=== PATIENT | female | born 1960 | race Caucasian/White ===

== ENCOUNTER 2020-09-22 15:51 | Outpatient (REF) | payer OTHER, SELFPAY ==
[2020-09-22 17:26] LABS: Thyroid Stimulating Hormone 4.76 mIU/mL (0.32-4.0)
[2020-09-22 17:56] LABS: T4 Thyroxine 5.8 ug/dL (4.5-12.0)
== END 2020-09-22 15:52 | disposition home or self-care (01) ==
LOC: HO.LAB 15:51
PROVIDERS: PCP Internal Medicine; Visit Provider Internal Medicine
DX: R94.6 Abnormal results of thyroid function studies (principal)
CPT/HCPCS: 84436; 84443

== ENCOUNTER 2021-01-04 11:02 | Outpatient (REF) | payer OTHER, SELFPAY ==
[2021-01-05 18:57] LABS: C. trachomatis RNA TMA NOT DETECTED (NOT DETECTED); N. gonorrhoeae RNA TMA NOT DETECTED (NOT DETECTED)
[2021-01-07 16:02] LABS: HPV mRNA E6/E7 rflx Not Detected (Not Detected)
== END 2021-01-04 11:03 | disposition home or self-care (01) ==
LOC: HO.LAB 11:02
PROVIDERS: PCP Internal Medicine; Visit Provider Advanced Practice Midwife
DX: Z01.419 Encounter for gynecological examination (general) (routine) without abnormal findings (principal); Z11.51 Encounter for screening for human papillomavirus (HPV); Z11.3 Encounter for screening for infections with a predominantly sexual mode of transmission; N95.2 Postmenopausal atrophic vaginitis; Z20.2 Contact with and (suspected) exposure to infections with a predominantly sexual mode of transmission; Z80.3 Family history of malignant neoplasm of breast
CPT/HCPCS: 36415; 87491; 87591; 87624; 88142

== ENCOUNTER → 2021-02-16 10:41 | Outpatient (BNVA) | payer OTHER, SELFPAY | PROVIDERS: PCP Internal Medicine; Visit Provider Advanced Practice Midwife | DX: N95.2 Postmenopausal atrophic vaginitis (principal) | CPT/HCPCS: 99212 ==

== ENCOUNTER 2021-10-11 11:10 | Outpatient (REF) | payer OTHER, SELFPAY ==
--- NOTE | ~2021-10-11 | XR_ITS ---
EXAMINATION: XR FINGER, RIGHT CLINICAL INFORMATION: Syncope and collapse COMPARISON: None TECHNIQUE: PA view of the hand and oblique and lateral views of the third digit FINDINGS: No acute fracture or dislocation. Small marginal osteophytes present throughout the interphalangeal joints, first metacarpophalangeal joint and first CMC joint. No erosive changes. Soft tissues unremarkable. XR/XR finger RT min 2V IMPRESSION: No acute findings. Mild degenerative changes as described.
--- NOTE | 2021-10-11 11:16 | ECG_ITS ---
Test Reason : syncope and collapse Blood Pressure : / mmHG Vent. Rate : 083 BPM Atrial Rate : 083 BPM P-R Int : 134 ms QRS Dur : 102 ms QT Int : 382 ms P-R-T Axes : 057 031 019 degrees QTc Int : 448 ms Normal sinus rhythm Intra-ventricular conduction delay Nonspecific ST abnormality Abnormal ECG No previous ECGs available Referred By: Maximo Oro Electronically Signed By:BELGICA MILLER MD
[2021-10-11 11:34] LABS: MANUAL DIFF FLAG NO
[2021-10-11 12:15] LABS: Basophils Absolute Auto 0.1 X10*3/uL (0.0-0.2); Basophils Percent Auto 1.1 % (0-2); Eosinophils Absolute Auto 0.1 X10*3/uL (0.0-0.4); Eosinophils Percent Auto 1.7 % (0-4); Hematocrit 35.2 % (37.0-47.0); Hemoglobin 11.1 g/dl (12.0-16.0); Imm Gran Abs Auto 0.01 X10*3/uL (0.00-0.03); Imm Gran Pct Auto 0.2 % (0.0-0.4); Lymphocytes Absolute Auto 1.8 X10*3/uL (1.2-4.9); Lymphocytes Percent Auto 33.5 % (20-40); Mean Corpuscular HGB Conc 31.5 g/dl (31.0-35.0); Mean Corpuscular Hemoglobin 26.9 pg (27.0-33.0); Mean Corpuscular Volume 85.4 fL (80.0-98.0); Monocytes Absolute Auto 0.4 X10*3/uL (0.1-1.2); Monocytes Percent Auto 7.9 % (2-11); Neutrophils Percent Auto 55.6 % (45-73); Platelet Count 260 X10*3/uL (160-400); Red Blood Count 4.12 X10*6/uL (4.20-5.50); Red Cell Distribution Width 14.6 % (11.0-16.0); White Blood Count 5.3 X10*3/uL (4.8-10.8)
[2021-10-11 12:31] LABS: Estimated Average Glucose 111 mg/dL; Hemoglobin A1c % 5.5 %
[2021-10-11 12:56] LABS: Alanine Aminotransferase 19 U/L (0-31); Albumin Level 4.2 g/dL (3.5-5.0); Alkaline Phosphatase 100 U/L (39-117); Anion Gap 14 (12-20); Aspartate Amino Transferase 22 U/L (5-31); Bilirubin Total 0.3 mg/dL (0.0-1.0); Blood Urea Nitrogen 15 mg/dL (9-16); Calcium 9.1 mg/dL (8.4-10.2); Carbon Dioxide 26 mmol/L (22-29); Chloride 104 mmol/L (96-108); Cholesterol 194 mg/dL; Estimated Glomerular Filt Rate > 60; Glucose Random 86 mg/dL (60-115); HDL Cholesterol 91 mg/dL; LDL Cholesterol Calculated 77 mg/dl; Sodium 140 mmol/L (135-145); Total Protein 6.8 g/dL (6.5-8.0); Triglycerides 130 mg/dL
[2021-10-11 13:13] LABS: Folate > 20.0 ng/mL (> or = 4.0); Vitamin B12 747 pg/mL (200-900)
[2021-10-11 13:21] LABS: Free T4 (Free Thyroxine) 0.99 ng/dL (0.71-1.85); Thyroid Stimulating Hormone 3.12 uIU/mL (0.32-4.0); Vitamin D 25-OH Total 52.9 ng/mL (>30)
[2021-10-11 14:24] LABS: Insulin 13 uU/mL (2-29)
[2021-10-13 20:42] LABS: C Peptide 3.11 ng/mL (0.80-3.85)
[2021-10-14 20:56] LABS: Beta-Hydroxybutyrate 0.07 mmol/L
[2021-10-20 05:00] LABS: Proinsulin 9.5 pmol/L (< OR = 18.8)
[2021-10-20 15:41] LABS: Chlorpropamide None Detected; Glimepiride None Detected; Glipizide None Detected; Glyburide None Detected; Nateglinide None Detected; Pioglitazone None Detected; Repaglinide None Detected; Rosiglitazone None Detected; Tolazamide None Detected; Tolbutamide None Detected
== END 2021-10-11 11:11 | disposition home or self-care (01) ==
LOC: HO.XRAY 11:10
PROVIDERS: PCP Internal Medicine; Visit Provider Internal Medicine
DX: R55 Syncope and collapse (principal); E78.1 Pure hyperglyceridemia; E78.00 Pure hypercholesterolemia, unspecified; R73.02 Impaired glucose tolerance (oral)
CPT/HCPCS: 36415; 73140; 80053; 80061; 80337; 82010; 82306; 82607; 82746; 83036; 83525; 84206; 84439; 84443; 84681; 85025; 93005

== ENCOUNTER 2021-11-01 06:42 | Outpatient (REF) | payer OTHER, SELFPAY ==
--- NOTE | 2021-11-01 06:47 | EEG_ITS ---
This is a 16-channel EEG with an EKG lead. The patient is reported awake and drowsy during the tracing. Background EEG rhythm is 12 to 14 hertz, 5 to 30 microvolt posteriorly, lower amplitude fast anteriorly. The patient transitioned in and out of drowsiness. Photic stimulation does not produce any significant abnormality. Hyperventilation is not performed. No sharp wave spikes or paroxysmal tendency or asymmetry noted. Cardiac lead does not reveal any significant abnormality. IMPRESSION: Unremarkable EEG. MD DEANDRA Colin/LASHAWN / [id number]
== END 2021-11-01 06:43 | disposition home or self-care (01) ==
LOC: HO.NEURO 06:42
PROVIDERS: Visit Provider Internal Medicine
DX: R55 Syncope and collapse (principal)
CPT/HCPCS: 95816

== ENCOUNTER 2021-11-09 11:20 | Outpatient (REF) | payer OTHER, SELFPAY ==
--- NOTE | ~2021-11-09 | US_ITS ---
EXAMINATION: US EXTRACRANIAL CAROTID DUPLEX, BILATERAL CLINICAL INFORMATION: Syncope and collapse COMPARISON: None TECHNIQUE: Real-time ultrasound and Doppler techniques (integrating B-mode 2-D vascular images, Doppler spectral analysis and color-flow Doppler imaging) were utilized to interrogate the extracranial carotid arteries, the vertebral arteries and proximal subclavian arteries bilaterally. The degree of stenosis is determined by criteria similar to NASCET. FINDINGS: Right Side: 1. There is no significant atherosclerotic plaque seen in the bifurcation/proximal ICA region. 2. The common carotid artery PSV proximally is 90 cm/s and distally 70 cm/s. 3. The proximal internal carotid artery velocities are 62 cm/s systolic and 21 cm/s diastolic. 4. The proximal external carotid artery PSV is 91 cm/s. 5. The vertebral artery shows antegrade flow. 6. The subclavian artery waveforms are normal. Left Side: 1. There is no significant atherosclerotic plaque seen in the bifurcation/proximal ICA region. 2. The common carotid artery PSV proximally is 92 cm/s and distally 98 cm/s. 3. The proximal internal carotid artery velocities are 83 cm/s systolic and 26 cm/s diastolic. 4. The proximal external carotid artery PSV is 94 cm/s. 5. The vertebral artery shows antegrade flow. 6. The subclavian artery waveforms are normal. US/US carotid duplex BI IMPRESSION: 1. RIGHT: Normal right internal carotid artery without atherosclerotic plaque or hemodynamically significant stenosis. 2. LEFT: Normal left internal carotid artery without atherosclerotic plaque or hemodynamically significant stenosis.
== END 2021-11-09 11:21 | disposition home or self-care (01) ==
LOC: HO.US 11:20
PROVIDERS: Visit Provider Internal Medicine
DX: R55 Syncope and collapse (principal)
CPT/HCPCS: 93880

== ENCOUNTER 2021-12-13 11:34 | Outpatient (REF) | payer OTHER, SELFPAY ==
[2021-12-13 11:49] LABS: MANUAL DIFF FLAG NO
[2021-12-13 11:58] LABS: Basophils Percent Auto 0.8 % (0-2); Eosinophils Absolute Auto 0.1 X10*3/uL (0.0-0.4); Eosinophils Percent Auto 1.8 % (0-4); Hematocrit 34.8 % (37.0-47.0); Hemoglobin 10.9 g/dl (12.0-16.0); Immature Retic Fraction 12.9 % (3.0-15.9); Lymphocytes Absolute Auto 1.9 X10*3/uL (1.2-4.9); Lymphocytes Percent Auto 37.6 % (20-40); Mean Corpuscular HGB Conc 31.3 g/dl (31.0-35.0); Mean Corpuscular Hemoglobin 26.4 pg (27.0-33.0); Mean Corpuscular Volume 84.3 fL (80.0-98.0); Mean Platelet Volume 9.8 fL (9.4-12.3); Monocytes Absolute Auto 0.4 X10*3/uL (0.1-1.2); Monocytes Percent Auto 7.1 % (2-11); Neutrophils Absolute Auto 2.6 x10*3/uL (2.0-8.3); Neutrophils Percent Auto 52.7 % (45-73); Platelet Count 245 X10*3/uL (160-400); Red Blood Count 4.13 X10*6/uL (4.20-5.50); Red Cell Distribution Width 14.1 % (11.0-16.0); Retic HGB Equivalent 29.2 pg (30.0-35.0); Reticulocyte Percent 0.8 % (0.5-1.8); Reticulocytes Absolute 0.032 X10*6/uL (0.026-0.095)
[2021-12-13 12:21] LABS: Iron 38 mcg/dL (30-160); Percent Iron Saturation 8 % (15-50); Total Iron Binding Capacity 457 mcg/dL (228-428); Unsaturated Iron Binding 419 ug/dL
[2021-12-13 12:42] LABS: Ferritin 3 ng/mL (10-250)
== END 2021-12-13 11:35 | disposition home or self-care (01) ==
LOC: HO.LAB 11:34
PROVIDERS: PCP Internal Medicine; Visit Provider Internal Medicine
DX: D64.9 Anemia, unspecified (principal)
CPT/HCPCS: 36415; 82728; 83540; 85025; 85045

== ENCOUNTER → 2022-01-07 10:16 | Outpatient (BNVA) | payer OTHER, SELFPAY | PROVIDERS: PCP Internal Medicine; Visit Provider Advanced Practice Midwife ==

== ENCOUNTER 2022-02-07 14:34 | Outpatient (REF) | payer OTHER, SELFPAY | END 2022-02-07 14:35 | disposition home or self-care (01) | LOC: HO.MAMMO 14:34 | PROVIDERS: Visit Provider Advanced Practice Midwife | DX: Z13.89 Encounter for screening for other disorder (principal) ==

== ENCOUNTER 2022-06-13 08:19 | Outpatient (REF) | payer OTHER, SELFPAY ==
--- NOTE | ~2022-06-13 | XR_ITS ---
EXAMINATION: XR SHOULDER, RIGHT CLINICAL INFORMATION: Shoulder pain. COMPARISON: 04/21/2015. TECHNIQUE: 3 views of the right shoulder. FINDINGS: There is no evidence of acute fracture or dislocation of the right shoulder. There is minimal spurring at the inferior aspect of the glenohumeral joint. There is calcific tendinitis present. Mild narrowing of the acromioclavicular joint is seen. No widening of the coracoclavicular space. XR/XR shoulder RT min 2V IMPRESSION: Calcific tendinitis.
== END 2022-06-13 08:20 | disposition home or self-care (01) ==
LOC: HO.HOSX 08:19
PROVIDERS: Visit Provider Physician Assistant
DX: M75.111 Incomplete rotator cuff tear or rupture of right shoulder, not specified as traumatic (principal)
CPT/HCPCS: 20610; 73030; 99202; J1040

== ENCOUNTER 2022-07-04 10:07 | Outpatient (REF) | payer OTHER, SELFPAY ==
--- NOTE | ~2022-07-04 | MM_ITS ---
EXAMINATION: MM SCREENING DIGITAL BREAST TOMOSYNTHESIS, BILATERAL CLINICAL INFORMATION: Screening. Asymptomatic. The lifetime risk of breast cancer based on the Tyrer-Cuzick Model is 17%. COMPARISON: Mammography: 03/03/2014, 02/20/2013 TECHNIQUE: Digital breast tomosynthesis is performed in both the craniocaudal and mediolateral oblique views along with computer-aided detection (CAD). Synthesized 2D images are generated from the tomosynthesis. FINDINGS: There are scattered areas of fibroglandular density (ACR BI-RADS breast composition Category b). There are no significant masses, abnormal calcifications, or other abnormalities. Parenchymal pattern is similar to prior studies. The axilla and skin contours are unremarkable. MM/MM tomosynthesis screening BI IMPRESSION: No mammographic evidence of malignancy. ASSESSMENT: BI-RADS 1: Negative RECOMMENDATION: Routine annual mammography screening. This patient's information was entered into a reminder system with a target due date for their next mammogram.
== END 2022-07-04 10:08 | disposition home or self-care (01) ==
LOC: HO.MAMMO 10:07
PROVIDERS: PCP Internal Medicine; Visit Provider Internal Medicine
DX: Z12.31 Encounter for screening mammogram for malignant neoplasm of breast (principal)
CPT/HCPCS: 77063; 77067

== ENCOUNTER 2023-05-24 10:54 | Outpatient (REF) | payer OTHER, SELFPAY ==
[2023-05-24 11:10] LABS: MANUAL DIFF FLAG NO
[2023-05-24 11:44] LABS: Basophils Absolute Auto 0.1 X10*3/uL (0.0-0.2); Basophils Percent Auto 1.9 % (0-2); Eosinophils Absolute Auto 0.1 X10*3/uL (0.0-0.4); Eosinophils Percent Auto 1.7 % (0-4); Hematocrit 40.2 % (37.0-47.0); Hemoglobin 13.4 g/dl (12.0-16.0); Imm Gran Abs Auto 0.02 X10*3/uL (0.00-0.03); Imm Gran Pct Auto 0.4 % (0.0-0.4); Immature Retic Fraction 6.5 % (3.0-15.9); Lymphocytes Absolute Auto 1.6 X10*3/uL (1.2-4.9); Lymphocytes Percent Auto 34.3 % (20-40); Mean Corpuscular HGB Conc 33.3 g/dl (31.0-35.0); Mean Corpuscular Hemoglobin 31.2 pg (27.0-33.0); Mean Corpuscular Volume 93.7 fL (80.0-98.0); Mean Platelet Volume 10.2 fL (9.4-12.3); Monocytes Absolute Auto 0.3 X10*3/uL (0.1-1.2); Monocytes Percent Auto 5.9 % (2-11); Neutrophils Absolute Auto 2.7 x10*3/uL (2.0-8.3); Neutrophils Percent Auto 55.8 % (45-73); Platelet Count 217 X10*3/uL (160-400); Red Blood Count 4.29 X10*6/uL (4.20-5.50); Red Cell Distribution Width 12.7 % (11.0-16.0); Retic HGB Equivalent 35.5 pg (30.0-35.0); Reticulocytes Absolute 0.045 X10*6/uL (0.026-0.095); White Blood Count 4.8 X10*3/uL (4.8-10.8)
[2023-05-24 11:58] LABS: Estimated Average Glucose 100 mg/dL; Hemoglobin A1c % 5.1 %
[2023-05-24 12:24] LABS: Alanine Aminotransferase 28 U/L (0-31); Alkaline Phosphatase 76 U/L (39-117); Anion Gap 7 (12-20); Aspartate Amino Transferase 23 U/L (5-31); Bilirubin Total 0.4 mg/dL (0.0-1.0); Blood Urea Nitrogen 10 mg/dL (9-16); Calcium 9.3 mg/dL (8.4-10.2); Carbon Dioxide 31 mmol/L (22-29); Chloride 102 mmol/L (96-108); Cholesterol 189 mg/dL; Estimated Glomerular Filt Rate > 60; Glucose Random 99 mg/dL (60-115); HDL Cholesterol 76 mg/dL; Iron 76 mcg/dL (30-160); LDL Cholesterol Calculated 92 mg/dl; Percent Iron Saturation 29 % (15-50); Potassium 3.8 mmol/L (3.3-5.1); Sodium 136 mmol/L (135-145); Total Iron Binding Capacity 265 mcg/dL (228-428); Total Protein 6.4 g/dL (6.5-8.0); Triglycerides 106 mg/dL; Unsaturated Iron Binding 189 ug/dL
[2023-05-24 12:33] LABS: Ferritin 63 ng/mL (10-250); Free T4 (Free Thyroxine) 0.92 ng/dL (0.71-1.85); Thyroid Stimulating Hormone 3.09 uIU/mL (0.32-4.0); Vitamin D 25-OH Total 64.3 ng/mL (>30)
[2023-05-24 15:51] LABS: Folate > 20.0 ng/mL (> or = 4.0); Vitamin B12 934 pg/mL (200-900)
== END 2023-05-24 10:55 | disposition home or self-care (01) ==
LOC: HO.LAB 10:54
PROVIDERS: PCP Internal Medicine; Visit Provider Internal Medicine
DX: D64.9 Anemia, unspecified (principal); R73.02 Impaired glucose tolerance (oral); E78.00 Pure hypercholesterolemia, unspecified; E78.1 Pure hyperglyceridemia; K21.9 Gastro-esophageal reflux disease without esophagitis
CPT/HCPCS: 36415; 80053; 80061; 82306; 82607; 82728; 82746; 83036; 83540; 84439; 84443; 85025; 85045

== ENCOUNTER 2023-09-19 15:59 | Outpatient (AMB) | payer MEDICARE, SELFPAY ==
--- NOTE | 2023-09-19 16:00 | A.OFFVIS_ITS ---
Intake Vital Signs 09/19/23 16:01 Height 5 ft 8 in Blood Pressure Location Lt brachial Position Sitting Pulse Source Pulse Oximeter Oxygen Delivery Method Room Air Intake Visit Reasons: Hypertension Allergies No Known Allergies Allergy (Verified 06/01/23 14:32) PFSH Medical History Degenerative disc disease, lumbar GERD (gastroesophageal reflux disease) History of gastrectomy Hypertension Hypertriglyceridemia Knee osteoarthritis Restless leg syndrome Surgical History H/O LEEP History of section History of lipoma History of removal of cyst Hx of laparoscopic gastric banding Status post panniculectomy Vaginal hernia Family History Father Heart disease Lung cancer CVD (cardiovascular disease) Mother Hypertension Stroke Sister Breast cancer, Onset Age: 53 Maternal Grandmother Breast cancer Social History Housing: Apartment Alcohol intake: current Alcohol intake frequency: holidays/special occasions on ly Patient Tobacco Use Status: Former Tobacco user Tobacco use type: Cigarette e-Cigarette/Vaping Use: Never Used Second Hand Smoke Exposure: No Current occupational status: unemployed Cognitive needs: No Hearing needs: No Vision needs: Yes Female Reproductive History Menstrual Age of Menarche: 11 Coding
[2023-09-19 16:01] VITALS: BP 136/80; PULSE 91; O2SAT 100; BMI 25.1
--- NOTE | 2023-09-19 16:04 | A.OFFPC_ITS ---
Vital Signs 09/19/23 16:01 Height 5 ft 8 in Weight 165 lb 0.8 oz BMI 25.1 BP 136/80 Blood Pressure Location Lt brachial Position Sitting Pulse 91 Pulse Source Pulse Oximeter Pulse Oximetry (%) 100 Oxygen Delivery Method Room Air Intake Visit Reasons: Hypertension Allergies No Known Allergies Allergy (Verified 09/19/23 16:03) Tobacco use date assessed: 06/01/23 Fall risk assessment: No Falls in past year Last assessed Fall Risk: 09/19/23 Dental Screening Dental Screen Date: 09/19/23 Did you have a dental visit in the last 12 months?: Yes Did you have a dental problem in the last 6 months where you did not have access to dental care?: No Was dental information given to patient?: Patient has dentist HPI Hypertension HPI Details 63-year-old female with hypertension, hy percholesterolemia GERD degenerative lumbar disc disease impaired glucose tolerance Yasmeen anxiety disorder last seen in May 2023. [facility] Medical History Degenerative disc disease, lumbar GERD (gastroesophageal reflux disease) History of gastrectomy Hypertension Hypertriglyceridemia Knee osteoarthritis Restless leg syndrome Surgical History H/O LEEP History of section History of lipoma History of removal of cyst Hx of laparoscopic gastric banding Status post panniculectomy Vaginal hernia Family History Father Heart disease Lung cancer CVD (cardiovascular disease) Mother Hypertension Stroke Sister Breast cancer, Onset Age: 53 Maternal Grandmother Breast cancer Social History Housing: Apartment Alcohol intake: current Alcohol intake frequency: holidays/special occasions only Patient Tobacco Use Status: Former Tobacco user Tobacco use type: Cigarette e-Cigarette/Vaping Use: Never Used Second Hand Smoke Exposure: No Current occupational status: unemployed Cognitive needs: No Hearing needs: No Vision needs: Yes Female Reproductive History Menstrual Age of Menarche: 11 Questionnaire Thrive Questionnaire Date Thrive assessed: 06/01/23 AUDIT C Alcohol Use Questionnaire (AUDIT-C) 1. How often do you have a drink containing alcohol?: Monthly or less 2. How many drinks containing alcohol do you have on a typical day when you are drinking?: 1 or 2 3. How often do you have six or more drinks on one occasion?: Never Total Score: 1 ASHLEY-7 AMB Questionnaire ASHLEY-7 Date ASHLEY - 7 assessed: 06/01/23 Source: Developed by Drs. Twin Sierra, Sandra العراقي, John Najera and colleagues, with an educational elana from [employer]. Physical exam (Primary Care) Vital Signs: Last Vital Signs Pulse 91 09/19/23 16:01 BP 136/80 09/19/23 16:01 Pulse Ox 100 09/19/23 16:01 Oxygen Delivery Method Room Air 09/19/23 16:01 BMI result Body Mass Index 25.1 Tobacco/Smoking Status: Tobacco use Status Tobacco use date assessed 06/01/23 09/19/23 16:05 Patient Tobacco Use Status Former Tobacco user 09/19/23 16:05 Tobacco use type Cigarette 09/19/23 16:05 e-Cigarette/Vaping Use Never Used 09/19/23 16:05 Thrive Assessment: Date of Thrive Assessment Date Thrive assessed 06/01/23 09/19/23 16:05 Const General: alert; No acute distress Eyes Conjunctivae: conjunctivae normal Resp Auscultation: clear to auscultation bilaterally Cardio Rate: regular rate Rhythm: regular rhythm GI Inspection: Yes normal to inspection Extrem General: Yes normal to inspection and No edema Office Procedures Flu Questionnaire Does the patient have a severe egg allergy?: No Does the patient have severe life threatening allergies?: No Does the patient have a fever or illness today?: No Has the patient ever had Guillain-Bellwood Syndrome?: No Has the patient ever had any past reaction to a flu shot?: No Immunizations flu vacc [id number] 6mos up(PF) 60 mcg(15 mcgx4)/0.5 mL IM syringe Performing Provider: Maximo Oro MD [facility] [place] [facility] Administered by: JOSEFINA Warner on 09/19/23 16:10 Dose Route Admin Location Dispensed Lot Number Expiration Date NDC [employer] Work[employer] 0.5 mL IM Left Deltoid 0.5 mL [id number] 05/26/24 18455-214-81 [employer] VIS Given Date VIS Provided VIS Publication Date 09/19/23 Single Vaccine 21 Eligibility Eligibility Date Funding Source Not VFC Eligible 09/19/23 Private pneumoc 20-nona conj-dip cr(PF) 0.5 mL IM syringe Performing Provider: Maximo Oro MD Performing [facility] [place] [facility] Administered by: JOSEFINA Warner on 09/19/23 16:49 Dose Route Admin Location Dispensed Lot Number Expiration Date NDC [employer] Worker 0.5 mL IM Left Deltoid 0.5 mL [id number] 05/27/24 [id number] VIS Given Date VIS Provided VIS Publication Date 09/19/23 Single Vaccine 21 Eligibility Eligibility Date Funding Source Not VFC Eligible 09/19/23 Private Assessment and Plan Assessment & Plan (1) Degenerative disc disease, lumbar: Code(s): M51.36 - Other intervertebral disc degeneration, lumbar region Plan: Narcotic pain meds: Is being prescribed with the understanding that these medications are potentially addictive and should be used only when absolutely necessary and must always be secured. Any remaining pills should be safely disposed off appropriately. Patient is advised that narcotics can impaired judgment and one should not drive or operate heavy machinery while taking these medications. Never share these medications with anybody and do not leave them unattended. They will not be replaced under any circumstances. (2) GERD (gastroesophageal reflux disease): Code(s): K21.9 - Gastro-esophageal reflux disease without esophagitis Qualifiers: Esophagitis presence: without esophagitis Qualified Code(s): K21.9 - Gastro-esophageal reflux disease without esophagitis Plan: Avoid the foods that causes that usually spicy foods, tomato products, juices, coffee, soda and foods that your sensitive to. After eating do not lie down, allow 3-4 hours before in lie down. And keep the head of bed above 30 degrees to avoid the acid from going up. (3) Hypertension: Code(s): I10 - Essential (primary) hypertension Qualifiers: Hypertension type: essential hypertension Qualified Code(s): I10 - Essential (primary) hypertension Plan: Continue with blood pressure medication. Decrease salt intake and exercise patient on lisinopril 5 mg once a day (4) Impaired glucose tolerance: Code(s): R73.02 - Impaired glucose tolerance (oral) Plan: Decrease the amount of carbohydrate intake, pasta, bread, rice and potatoes are all sugar and that is aside from all the sweet stuff, remember that fruits are good but they are Sweet also. (5) Breast cancer screening by mammogram: Code(s): Z12.31 - Encounter for screening mammogram for malignant neoplasm of breast Orders: Orders Influenza [id number] Immunization Today Z23 - Encounter for immunization MM tomosynthesis screening BI Today Z12.31 - Encounter for screening mammogram for malignant neoplasm of breast Pneumococcal 20 Immunization Today Z23 - Encounter for immunization Medications: Refilled oxycodone-acetaminophen 5-325 mg 1 tab PO DAILY PRN 30 tabs 0RF pain R73.02 - Impaired glucose tolerance (oral) Coding Level of Care Code Est Pt Level 4 (23690) Diagnoses Degenerative disc disease, lumbar M51.36 Gastroesophageal reflux disease without esophagitis K21.9 Esophagitis presence: without esophagitis Essential hypertension I10 Hypertension type: essential hypertension Impaired glucose tolerance R73.02 Breast cancer screening by mammogram Z11.26
== END 2023-09-19 16:55 | disposition home or self-care (01) ==
PROVIDERS: PCP Internal Medicine; Visit Provider Internal Medicine
DX: M51.36 Other intervertebral disc degeneration, lumbar region (principal); K21.9 Gastro-esophageal reflux disease without esophagitis; I10 Essential (primary) hypertension; R73.02 Impaired glucose tolerance (oral); Z12.31 Encounter for screening mammogram for malignant neoplasm of breast; Z23 Encounter for immunization
CPT/HCPCS: 90471; 90677; 90686; 99214

== ENCOUNTER 2023-10-07 08:51 | Outpatient (REF) | payer MEDICARE, SELFPAY ==
--- NOTE | ~2023-10-07 | MM_ITS ---
EXAMINATION: MM SCREENING DIGITAL BREAST TOMOSYNTHESIS, BILATERAL CLINICAL INFORMATION: Screening. Asymptomatic. COMPARISON: Mammography: This study is compared with prior exams dating back to 2012. TECHNIQUE: Digital breast tomosynthesis is performed in both the craniocaudal and mediolateral oblique views along with computer-aided detection (CAD). Synthesized 2D images are generated from the tomosynthesis. FINDINGS: There are scattered areas of fibroglandular density (ACR BI-RADS breast composition Category b). There are no significant masses, abnormal calcifications, or other abnormalities. MM/MM tomosynthesis screening BI IMPRESSION: No mammographic evidence of malignancy. ASSESSMENT: BI-RADS BI-RADS 1 - Negative RECOMMENDATION: Routine annual mammography screening. 1 year F/U This examination should not preclude the clinical evaluation of a suspicious palpable abnormality. This patient's information was entered into a reminder system with a target due date for their next mammogram.
== END 2023-10-07 08:52 | disposition home or self-care (01) ==
LOC: HO.MAMMO 08:51
PROVIDERS: PCP Internal Medicine; Visit Provider Internal Medicine
DX: Z12.31 Encounter for screening mammogram for malignant neoplasm of breast (principal)
CPT/HCPCS: 77063; 77067

== ENCOUNTER → 2023-10-07 09:00 | Outpatient (BNV) | payer MEDICARE, MEDICAID, SELFPAY | PROVIDERS: PCP Internal Medicine; Visit Provider Radiology Diagnostic Radiology | DX: Z12.31 Encounter for screening mammogram for malignant neoplasm of breast (principal) | CPT/HCPCS: 77063; 77067 ==

== ENCOUNTER 2024-01-05 12:45 | Outpatient (AMB) | payer MEDICARE, MEDICAID, SELFPAY ==
[2024-01-05 12:51] VITALS: BP 160/108; PULSE 80; TEMP 15.5; O2SAT 99; BMI 24.4
--- NOTE | 2024-01-05 12:51 | MHC.PC.OV ---
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 Accompanied by: Self / Same As Patient Allergies No Known Allergies Allergy (Verified 01/05/24 12:53) Tobacco use date assessed: 01/05/24 Fall risk assessment: No Falls in past year Last assessed Fall Risk: 01/05/24 Dental Screening Dental Screen Date: 01/05/24 Did you have a dental visit in the last 12 months?: Yes Did you have a dental problem in the last 6 months where you did not have access to dental care?: No Was dental information given to patient?: Patient has dentist HPI Lump on right side of neck HPI Details 63-year-old female with a history of lumbar degenerative disc disease GERD hypertension impaired glucose tolerance coming in for an acute problem. Last seen in August 2023. Up-to-date with mammogram up-to-date with Cologuard test. Received COVID-19 vaccine October. 1 week noted R side neck mass.- , no fevers, mild sore throat, , had a cough , no sob, PFSH Medical History Degenerative disc disease, lumbar GERD (gastroesophageal reflux disease) History of gastrectomy Hypertension Hypertriglyceridemia Knee osteoarthritis Restless leg syndrome Surgical History Vaginal hernia Status post panniculectomy Hx of laparoscopic gastric banding H/O LEEP History of lipoma History of removal of cyst History of section Family History Father Heart disease Lung cancer CVD (cardiovascular disease) Mother Hypertension Stroke Sister Breast cancer, Onset Age: 53 Maternal Grandmother Breast cancer Social History Housing: Apartment Alcohol intake: current Alcohol intake frequency: holidays/special occasions only Patient Tobacco Use Status: Former Tobacco user Tobacco use type: Cigarette e-Cigarette/Vaping Use: Never Used Second Hand Smoke Exposure: No Current occupational status: unemployed Cognitive needs: No Hearing needs: No Vision needs: Yes Female Reproductive History Menstrual Age of Menarche: 11 Questionnaire PHQ-9 Over the last 2 weeks, how often have you been bothered by any of the following problems? 1. Little interest or pleasure in doing things: more than half the days 2. Feeling down, depressed, or hopeless: more than half the days 3. Trouble falling or staying asleep, or sleeping too much: not at all 4. Feeling tired or having little energy: more than half the days 5. Poor appetite or overeating: more than half the days 6. Feeling bad about yourself - or that you are a failure or have let yourself or your family down: more than half the days 7. Trouble concentrating on things, such as reading the newspaper or watching television: nearly every day 8. Moving or speaking so slowly that other people could have noticed. Or the opposite - being so fidgety or restless that you have been moving around a lot more than usual: several days 9. Thoughts that you would be better off or of hurting yourself in some way: not at all Total score: 14 25332 - PHQ-9 Billing: Yes Source: Developed by Drs. Twin Sierra, Sandra العراقي, John Najera and colleagues, with an educational elana from [employer] Thrive Questionnaire Date Thrive assessed: 01/05/24 I am a: Patient What is your living situation today?: I have a steady place to live Within the past 12 months, did the food you bought not last and you didn't have the money to get more?: Never true Within the past 12 months, did you worry whether your food would run out before you got money to buy more?: Never true Do you have trouble paying for medicines?: No Do you have trouble getting transportation to medical appointments?: No Do you have trouble paying your heating and electricity bill?: No Do you have trouble taking care of your child, family member or friend?: No Do you have trouble with day-to-day activities such as bathing, preparing meals, shopping, managing finances, etc.?: No Are you currently unemployed and looking for a job?: No Are you interested in more education?: No Please select the resources that you would like help with: None Currently or been in a relationship where the following occur: no concerns reported THRIVE Score: 0 AUDIT C Alcohol Use Questionnaire (AUDIT-C) 1. How often do you have a drink containing alcohol?: Monthly or less 2. How many drinks containing alcohol do you have on a typical day when you are drinking?: 1 or 2 3. How often do you have six or more drinks on one occasion?: Never Total Score: 1 ASHLEY-7 AMB Questionnaire ASHLEY-7 Date ASHLEY - 7 assessed: 01/05/24 Feeling nervous, anxious, or on edge: 2 = More than half the days Not being able to stop or control worryin = More than half the days Worrying too much about different things: 2 = More than half the days Trouble relaxin = Not at all Being so restless that it is hard to sit still: 2 = More than half the days Becoming easily annoyed or irritable: 3 = Nearly every day Feeling afraid as if something awful might happen: 2 = More than half the days Total ASHLEY-7 score (0-4 normal; 5-9 mild; 10-14 moderate; 15-21 severe): 13 Source: Developed by Drs. Twin Sierra, Sandra العراقي, John Najera and colleagues, with an educational elana from [employer] ASHLEY-7 Assessment Billing ASHLEY-7 Assessment Tool: ASHLEY-7 Assessment 57413 Physical exam (Primary Care) Vital Signs: Last Vital Signs Temp 60 F L 01/05/24 12:51 Pulse 80 01/05/24 12:51 BP 160/96 H 01/05/24 13:05 Pulse Ox 99 01/05/24 12:51 Oxygen Delivery Method Room Air 01/05/24 12:51 BMI result Body Mass Index 24.4 Tobacco/Smoking Status: Tobacco use Status Tobacco use date assessed 01/05/24 01/05/24 12:54 Patient Tobacco Use Status Former Tobacco user 01/05/24 12:54 Tobacco use type Cigarette 01/05/24 12:54 e-Cigarette/Vaping Use Never Used 01/05/24 12:54 PHQ-9: PHQ-9 Score PHQ-9: Total score 14 02/09/24 13:05 Thrive Assessment: Date of Thrive Assessment Date Thrive assessed 01/05/24 01/05/24 13:05 Currently or been in a relationship where the following occur: no concerns reported Const General: alert; No acute distress Eyes Conjunctivae: conjunctivae normal Neck Other: neck mass noted Neck images: 1. neck mass Right 5 by 4 cmno redness . non tender Resp Auscultation: clear to auscultation bilaterally Cardio Rate: regular rate Rhythm: regular rhythm GI Inspection: Yes normal to inspection Extrem General: Yes normal to inspection and No edema Assessment and Plan Assessment & Plan (1) Hypertension: Code(s): I10 - Essential (primary) hypertension Qualifiers: Hypertension type: essential hypertension Qualified Code(s): I10 - Essential (primary) hypertension Plan: concern about the BP as patient is being prescribed ADHD med- advised to talk to counsellor and prescriber- need to change med (2) GERD (gastroesophageal reflux disease): Code(s): K21.9 - Gastro-esophageal reflux disease without esophagitis Qualifiers: Esophagitis presence: without esophagitis Qualified Code(s): K21.9 - Gastro-esophageal reflux disease without esophagitis Plan: Avoid the foods that causes that usually spicy foods, tomato products, juices, coffee, soda and foods that your sensitive to. After eating do not lie down, allow 3-4 hours before in lie down. And keep the head of bed above 30 degrees to avoid the acid from going up. On omeprazole 40 mg once a day (3) Degenerative disc disease, lumbar: Code(s): M51.36 - Other intervertebral disc degeneration, lumbar region Plan: Continue with pain medication p.r.n./Narcotic pain meds: Is being prescribed with the understanding that these medications are potentially addictive and should be used only when absolutely necessary and must always be secured. Any remaining pills should be safely disposed off appropriately. Patient is advised that narcotics can impaired judgment and one should not drive or operate heavy machinery while taking these medications. Never share these medications with anybody and do not leave them unattended. They will not be replaced under any circumstances. (4) Generalized anxiety disorder: Comment: [facility] Counseling Code(s): F41.1 - Generalized anxiety disorder Plan: Concern about Adderall treatment (5) Mass of right side of neck: Code(s): R22.1 - Localized swelling, mass and lump, neck Plan: Right Sided neck mass 1 week duration discussed my concern about the mass and the urgency of getting this tested. Because of the length of time antibiotic is prescribed for the patient but advised to get blood work and an urgent CT scan of the neck Orders: Orders Complete Blood Count Auto Diff Today R22.1 - Localized swelling, mass and lump, neck Comprehensive Met. Panel Today R22.1 - Localized swelling, mass and lump, neck Thyroid Stimulating Hormone Today R22.1 - Localized swelling, mass and lump, neck Free T4 (Free Thyroxine) Today R22.1 - Localized swelling, mass and lump, neck CT soft tissue neck w IV con Today R22.1 - Localized swelling, mass and lump, neck Medications: New amoxicillin-pot clavulanate 875-125 mg 1 tab PO BID 14 tabs 0RF R22.1 - Localized swelling, mass and lump, neck Refilled oxycodone-acetaminophen 5-325 mg 1 tab PO DAILY PRN 30 tabs 0RF pain R73.02 - Impaired glucose tolerance (oral) Coding Level of Care Code Est Pt Level 4 (12098) Diagnoses Essential hypertension I10 Hypertension type: essential hypertension Gastroesophageal reflux disease without esophagitis K21.9 Esophagitis presence: without esophagitis Degenerative disc disease, lumbar M51.36 Generalized anxiety disorder F41.1 Mass of right side of neck R22.1 Additional Codes ASHLEY-7 Assessment Billing - ASHLEY-7 Assessment Tool: ASHLEY-7 Assessment 18652 ([id number])
[2024-01-05 13:05] VITALS: BP 160/96
== END 2024-01-05 13:35 | disposition home or self-care (01) ==
PROVIDERS: PCP Internal Medicine; Visit Provider Internal Medicine
DX: I10 Essential (primary) hypertension (principal); K21.9 Gastro-esophageal reflux disease without esophagitis; M51.36 Other intervertebral disc degeneration, lumbar region; F41.1 Generalized anxiety disorder; R22.1 Localized swelling, mass and lump, neck
CPT/HCPCS: 99214

== ENCOUNTER 2024-01-05 14:04 | Outpatient (REF) | payer MEDICARE, MEDICAID, SELFPAY ==
--- NOTE | ~2024-01-05 | CT_ITS ---
EXAMINATION: CT SOFT TISSUE NECK WITH CONTRAST CLINICAL INFORMATION: Localized swelling. Mass and lump in neck. COMPARISON: No relevant prior imaging. TECHNIQUE: Following the intravenous administration of 60 mL of Omnipaque 350 intravenous contrast, helical imaging was performed in the axial plane with generation of coronal and sagittal reformatted images. This CT examination was performed using dose optimization techniques as appropriate, variously including the following: *Automated exposure control *Adjustment of mA and/or kV according to patient size (this includes techniques or standardized protocols for targeted exams where dose is matched to indication/reason for exam; i.e. extremities or head) *Use of iterative reconstruction technique DLP: 389 mGy-cm FINDINGS: There is a linear metallic foreign body located within the right sublingual space possibly related to a dental appliance. Streak artifact related to hardware obscures the oral cavity. The diagnostic accuracy of this examination is therefore limited with regard to these findings. There is a heterogeneously enhancing centrally necrotic right level III cervical lymph node best visualized on axial image 75 of 133 series 3 measuring up to 2.6 cm in maximal transaxial dimension. Multiple additional enhancing right level II, III, and IV cervical lymph nodes are visualized within the [id number] of this examination. These findings are most consistent with metastatic disease. There is subtle asymmetric enhancement within the right tonsillar fossa. Further mucosal spaces are otherwise unremarkable. Parapharyngeal and retromaxillary fat is preserved. [employer] spaces are symmetric. The parotid and submandibular glands are normal. The tongue base and epiglottis are normal. Preepiglottic fat is preserved. Glottic and subglottic airways are widely patent. The thyroid gland is normal and the remainder of the visualized visceral soft tissues are normal. Lung apices are clear. The aortic arch apex is normal. Cervical carotid or vertebral arteries are patent. There is compression or possible invasion along the lateral margin of the right internal jugular vein best visualized on axial image 74 of 133 series 3. No identifiable tumor thrombus within the internal jugular vein. There is no acute osseous finding. Specifically no worrisome lytic or blastic osseous lesion. There is advanced multilevel degenerative spondylosis of the cervical spine with at least moderate canal stenosis at multiple levels. The skull base is grossly intact. No mastoid or middle ear effusion. No active paranasal sinus disease. Limited visualization of the intracranial anatomy reveals no abnormal finding. CT/CT soft tissue neck w IV con IMPRESSION: There is a heterogeneously enhancing centrally necrotic right level III cervical lymph node measuring up to 2.6 cm in maximal transaxial dimension. Multiple additional enhancing right level II, III, and IV cervical lymph nodes are visualized within the [id number] of this examination. These findings are most consistent with metastatic disease. There is subtle asymmetric enhancement within the right tonsillar fossa. This finding could represent the site of primary disease. Correlation with direct visualization is recommended. There is advanced multilevel degenerative spondylosis of the cervical spine with at least moderate canal stenosis at multiple levels. If there are clinical symptoms of compressive myelopathy then a dedicated cervical spine MRI can be obtained for better anatomic characterization of the cord and canal.
[2024-01-05 14:22] LABS: MANUAL DIFF FLAG NO
[2024-01-05 15:35] LABS: Basophils Absolute Auto 0.1 X10*3/uL (0.0-0.2); Basophils Percent Auto 0.8 % (0-2); Eosinophils Absolute Auto 0.1 X10*3/uL (0.0-0.4); Hematocrit 37.6 % (37.0-47.0); Hemoglobin 12.5 g/dl (12.0-16.0); Imm Gran Abs Auto 0.02 X10*3/uL (0.00-0.03); Imm Gran Pct Auto 0.3 % (0.0-0.4); Lymphocytes Absolute Auto 2.1 X10*3/uL (1.2-4.9); Lymphocytes Percent Auto 28.6 % (20-40); Mean Corpuscular HGB Conc 33.2 g/dl (31.0-35.0); Mean Corpuscular Hemoglobin 30.1 pg (27.0-33.0); Mean Corpuscular Volume 90.6 fL (80.0-98.0); Monocytes Absolute Auto 0.5 X10*3/uL (0.1-1.2); Monocytes Percent Auto 6.1 % (2-11); Neutrophils Absolute Auto 4.6 x10*3/uL (2.0-8.3); Neutrophils Percent Auto 63.2 % (45-73); Platelet Count 298 X10*3/uL (160-400); Red Blood Count 4.15 X10*6/uL (4.20-5.50); Red Cell Distribution Width 12.9 % (11.0-16.0); White Blood Count 7.3 X10*3/uL (4.8-10.8)
[2024-01-05 16:24] LABS: Alanine Aminotransferase 19 U/L (0-31); Albumin Level 3.9 g/dL (3.5-5.0); Alkaline Phosphatase 98 U/L (39-117); Anion Gap 12 (12-20); Aspartate Amino Transferase 19 U/L (5-31); Bilirubin Total 0.3 mg/dL (0.0-1.0); Blood Urea Nitrogen 8 mg/dL (9-16); Calcium 9.9 mg/dL (8.4-10.2); Carbon Dioxide 30 mmol/L (22-29); Chloride 101 mmol/L (96-108); Estimated Glomerular Filt Rate > 60; Glucose Random 86 mg/dL (60-115); Potassium 4.1 mmol/L (3.3-5.1); Sodium 139 mmol/L (135-145)
[2024-01-05 16:42] LABS: Free T4 (Free Thyroxine) 0.91 ng/dL (0.71-1.85); Thyroid Stimulating Hormone 2.81 uIU/mL (0.32-4.0)
[2024-01-05] MEDS: iohexoL 350 MG/ML 100 ML INFUS..BTL IV (17:21)
== END 2024-01-05 14:05 | disposition home or self-care (01) ==
LOC: HO.LAB 14:04
PROVIDERS: PCP Internal Medicine; Visit Provider Internal Medicine
DX: R22.1 Localized swelling, mass and lump, neck (principal)
CPT/HCPCS: 36415; 70491; 80053; 84439; 84443; 85025; Q9967

== ENCOUNTER 2024-01-19 09:51 | Outpatient (AMB) | payer MEDICARE, MEDICAID, SELFPAY ==
--- NOTE | 2024-01-19 10:01 | A.OFFVIS_ITS ---
Intake Vital Signs 01/19/24 10:05 Height 5 ft 8 in Weight 160 lb BMI 24.3 BP 158/75 H Blood Pressure Location Lt brachial Position Sitting Pulse 78 Intake Visit Reasons: Mass~ Rt neck Intake Note: Patient is seen in office for evaluation and treatment of a right neck mass Pt c/o:lump right side of the neck for aprox 2 wks, had antibiotics and lump has decrease since, denies discharge, redness, swelling, was painful when swollen [facility] Required: No Accompanied by: Self / Same As Patient Allergies No Known Allergies Allergy (Verified 01/19/24 10:02) HPI HPI Comments History of Present Illness Details Patient presents for evaluation of a right mid cervical lymph node. She was treated with antibiotics for proximally 2 weeks time by medical doctor. She was found to have a CT scan of the head neck area was demonstrated very suspicious lymphadenopathy. Patient herself denies any fever, chills, night sweats, weight loss. Energy, appetite and weight are stable. Patient does have very significant past smoking history. Chart was reviewed patient evaluate [facility] Medical History Degenerative disc disease, lumbar GERD (gastroesophageal reflux disease) History of gastrectomy Hypertension Hypertriglyceridemia Knee osteoarthritis Restless leg syndrome Surgical History Vaginal hernia Status post panniculectomy Hx of laparoscopic gastric banding H/O LEEP History of lipoma History of removal of cyst History of section Family History Father Heart disease Lung cancer CVD (cardiovascular disease) Mother Hypertension Stroke Sister Breast cancer, Onset Age: 53 Maternal Grandmother Breast cancer Social History Housing: Apartment Alcohol intake: current Alcohol intake frequency: holidays/special occasions only Patient Tobacco Use Status: Former Tobacco user Tobacco use type: Cigarette e-Cigarette/Vaping Use: Never Used Second Hand Smoke Exposure: No Current occupational status: unemployed Cognitive needs: No Hearing needs: No Vision needs: Yes Female Reproductive History Menstrual Age of Menarche: 11 Physical Exam Vital Signs: Last Vital Signs Pulse 78 01/19/24 10:05 BP 158/75 H 02/23/24 10:05 BMI result Body Mass Index 24.3 Neck Other: Deep right mid cervical lymph node along the posterior margin of the sternocleidomastoid. No other cervical periclavicular axillary or groin adenopathy appreciated. Chest Other: Chest breath sounds bilaterally, HS 1 in 2 GI Other: Abdomen soft, benign Assessment & Plan Assessment & Plan (1) Mass of right side of neck: Code(s): R22.1 - Localized swelling, mass and lump, neck Plan Based on the patient's CT scan findings, the current recommendation is for excisional biopsy of this right mid cervical suspicious lymph node. Risks, benefits, alternatives of the procedure reviewed the patient and included but not limited to bleeding, infection, recurrence, numbness, pain, scarring, nondiagnostic , and the patient wishes to proceed. All questions answered. Arrangements were made for this. Coding Level of Care Code New Pt Level 5 (57948) Diagnoses Mass of right side of neck R22.1
[2024-01-19 10:05] VITALS: BP 158/75; PULSE 78; BMI 24.3
== END 2024-01-19 10:19 | disposition home or self-care (01) ==
PROVIDERS: PCP Internal Medicine; Referring Provider Internal Medicine; Visit Provider Surgery
DX: R22.1 Localized swelling, mass and lump, neck (principal)
CPT/HCPCS: 99204

== ENCOUNTER → 2024-01-19 09:51 | Outpatient (BNVA) | payer MEDICARE, MEDICAID, SELFPAY | PROVIDERS: PCP Internal Medicine; Referring Provider Internal Medicine; Visit Provider Surgery | DX: R22.1 Localized swelling, mass and lump, neck (principal) | CPT/HCPCS: 99202 ==

== ENCOUNTER 2024-01-30 13:30 | Outpatient (AMB) | payer MEDICARE, MEDICAID, SELFPAY ==
[2024-01-30 13:31] VITALS: BP 146/98; PULSE 84; O2SAT 99; BMI 23.4
--- NOTE | 2024-01-30 13:31 | A.OFFPC_ITS ---
Vital Signs 01/30/24 13:31 Height 5 ft 8 in Weight 154 lb 0.2 oz BMI 23.4 BP 146/98 H Blood Pressure Location Lt brachial Position Sitting Pulse 84 Pulse Source Pulse Oximeter Temp Source Skin Pulse Oximetry (%) 99 Oxygen Delivery Method Room Air Intake Visit Reasons: neck surgery Intake Note: Patient is here for a Pre-op for right cervical lymph node scheduled with Dr. 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: No Allergies No Known Allergies Allergy (Verified 01/30/24 13:32) Medication List - Last Reconciled 01/30/24 by Maximo Oro MD blood sugar diagnostic (FreeStyle Lite Strips) As directed check the BS QD blood-glucose meter (FreeStyle Lite Meter kit) As directed bupropion HCl 150 mg PO QAM calcium carbonate-vitamin D3 500 mg-5 mcg (200 unit) (Calcium 500 + D) 1 tab PO DAILY cyclobenzaprine 10 mg PO TID dextroamphetamine-amphetamine 20 mg (Adderall) 20 mg PO DAILY docusate sodium 100 mg PO BID escitalopram oxalate 10 mg PO DAILY fluticasone propionate 50 mcg/actuation (Flonase Allergy Relief) 2 sprays intranasal DAILY glucosamine HCl 500 mg PO DAILY lisinopril 5 mg PO DAILY lorazepam 1 mg PO DAILY PRN multivitamin 1 tab PO DAILY naloxone 4 mg/actuation (Narcan) 4 mg intranasal Q3M PRN omeprazole 40 mg PO QAM oxycodone-acetaminophen 5-325 mg 1 tab PO DAILY PRN ropinirole 1 mg PO DAILY vit A-vit C-vit N-fdcm-lahimi 7,160-113-100 lizs-ny-sjqe tabs PO DAILY Tobacco use date assessed: 01/30/24 Fall risk assessment: No Falls in past year Last assessed Fall Risk: 01/30/24 HPI neck surgery HPI Details 63-year-old female with a history of hyp ertension GERD lumbar degenerative disc disease generalized anxiety disorder coming in for follow-up last seen in 01/05/2024 having right-sided neck mass. Patient was referred to the surgeon as well as the hematology oncology. Surgeons note appreciated has been advised to have excisional biopsy of the right mid cervical suspicious lymph node. Planned 02/02/2024. the mass has gone down dramatically but will still have the procedure . Otherwise patient is here for refill on the narcotic pain medication no other complaints of nausea vomiting fevers no coughs no colds no bowel bladder symptoms. [facility] Medical History Degenerative disc disease, lumbar GERD (gastroesophageal reflux disease) History of gastrectomy Hypertension Hypertriglyceridemia Knee osteoarthritis Restless leg syndrome Surgical History Vaginal hernia Status post panniculectomy Hx of laparoscopic gastric banding H/O LEEP History of lipoma History of removal of cyst History of section Family History Father Heart disease Lung cancer CVD (cardiovascular disease) Mother Hypertension Stroke Sister Breast cancer, Onset Age: 53 Maternal Grandmother Breast cancer Social History Housing: Apartment Alcohol intake: current Alcohol intake frequency: holidays/special occasions only Patient Tobacco Use Status: Former Tobacco user Tobacco use type: Cigarette e-Cigarette/Vaping Use: Never Used Second Hand Smoke Exposure: No Current occupational status: unemployed Cognitive needs: No Hearing needs: No Vision needs: Yes Female Reproductive History Menstrual Age of Menarche: 11 Questionnaire Thrive Questionnaire Date Thrive assessed: 01/05/24 AUDIT C Alcohol Use Questionnaire (AUDIT-C) 1. How often do you have a drink containing alcohol?: Monthly or less 2. How many drinks containing alcohol do you have on a typical day when you are drinking?: 1 or 2 3. How often do you have six or more drinks on one occasion?: Never Total Score: 1 ASHLEY-7 AMB Questionnaire ASHLEY-7 Date ASHLEY - 7 assessed: 01/05/24 Source: Developed by Drs. Twin Sierra, Sandra العراقي, John Najera and colleagues, with an educational elana from [employer]. Review of Systems Const Denies poor appetite and Denies weakness Eyes Denies no additional complaints ENT Reports Normal hearing present, Denies dizziness, Denies nasal congestion, Denies tinnitus and Denies sore throat Card Denies chest pain, Denies syncope, Denies rapid heart rate and Denies dyspnea Resp Denies cough and Denies dyspnea GI Denies change in stool character, Reports constipation, Denies diarrhea, Denies nausea and Denies vomiting Denies urinary frequency, Denies difficulty voiding and Denies dysuria Neuro Reports Normal hearing present, Denies confusion, Denies dizziness, Denies syncope and Denies weakness Psych Denies confusion Physical exam (Primary Care) Vital Signs: Last Vital Signs Pulse 84 01/30/24 13:31 BP 146/98 H 01/30/24 13:31 Pulse Ox 99 01/30/24 13:31 Oxygen Delivery Method Room Air 01/30/24 13:31 BMI result Body Mass Index 23.4 Tobacco/Smoking Status: Tobacco use Status Tobacco use date assessed 01/30/24 01/30/24 13:33 Patient Tobacco Use Status Former Tobacco user 01/30/24 13:33 Tobacco use type Cigarette 01/30/24 13:33 e-Cigarette/Vaping Use Never Used 01/30/24 13:33 Thrive Assessment: Date of Thrive Assessment Date Thrive assessed 01/05/24 01/30/24 13:33 Const General: No confusion Orientation/consciousness: No confusion Eyes Conjunctivae: conjunctivae normal Resp Auscultation: clear to auscultation bilaterally Cardio Rate: regular rate Rhythm: regular rhythm GI Inspection: Yes normal to inspection Neuro General: No confusion Cranial nerves: Yes Normal hearing present Extrem General: Yes normal to inspection and No edema Assessment and Plan Assessment & Plan (1) Hypertension: Code(s): I10 - Essential (primary) hypertension Qualifiers: Hypertension type: essential hypertension Qualified Code(s): I10 - Essential (primary) hypertension Plan: Presently on lisinopril 5 mg once a day (2) GERD (gastroesophageal reflux disease): Code(s): K21.9 - Gastro-esophageal reflux disease without esophagitis Qualifiers: Esophagitis presence: without esophagitis Qualified Code(s): K21.9 - Gastro-esophageal reflux disease without esophagitis Plan: Avoid the foods that causes that usually spicy foods, tomato products, juices, coffee, soda and foods that your sensitive to. After eating do not lie down, allow 3-4 hours before in lie down. And keep the head of bed above 30 degrees to avoid the acid from going up. (3) Degenerative disc disease, lumbar: Code(s): M51.36 - Other intervertebral disc degeneration, lumbar region Plan: Narcotic pain meds: Is being prescribed with the understanding that these medications are potentially addictive and should be used only when absolutely necessary and must always be secured. Any remaining pills should be safely disposed off appropriately. Patient is advised that narcotics can impaired judgment and one should not drive or operate heavy machinery while taking these medications. Never share these medications with anybody and do not leave them unattended. They will not be replaced under any circumstances. (4) Generalized anxiety disorder: Comment: [facility] Code(s): F41.1 - Generalized anxiety disorder Plan: Continue with counseling and therapy (5) Mass of right side of neck: Code(s): R22.1 - Localized swelling, mass and lump, neck Plan: Patient has a planned excisional biopsy 02/02/2024 the right neck mass has subsided in size. Medications: Refilled oxycodone-acetaminophen 5-325 mg 1 tab PO DAILY PRN 30 tabs 0RF pain R73.02 - Impaired glucose tolerance (oral) Coding Level of Care Code Est Pt Level 4 (88005) Diagnoses Essential hypertension I10 Hypertension type: essential hypertension Gastroesophageal reflux disease without esophagitis K21.9 Esophagitis presence: without esophagitis Degenerative disc disease, lumbar M51.36 Generalized anxiety disorder F41.1 Mass of right side of neck R22.1
== END 2024-01-30 14:14 | disposition home or self-care (01) ==
PROVIDERS: PCP Internal Medicine; Visit Provider Internal Medicine
DX: I10 Essential (primary) hypertension (principal); K21.9 Gastro-esophageal reflux disease without esophagitis; M51.36 Other intervertebral disc degeneration, lumbar region; F41.1 Generalized anxiety disorder; R22.1 Localized swelling, mass and lump, neck
CPT/HCPCS: 99214

== ENCOUNTER 2024-02-02 07:04 | Day surgery (SDC) | payer MEDICARE, MEDICAID, SELFPAY ==
[2024-01-31 10:08] VITALS: BMI 23.4
--- NOTE | 2024-02-01 16:21 | MHC.SHP ---
Pre-Procedural Eval Section A - 24 Hr Update-Section A only Date of Service: 02/01/24 The patient is an INPATIENT: No Changes since office visit: No Cold of Flu in the past 2 weeks, No New Medical Problems, No Changes in Medication and No Patient answered all questions The patient has been examined within 24 hours of the surgical procedure. The History & Physical has been completed within 30 days and I have reviewed it.: Yes Section B - Complete if H&P > 30 days Chief Complaint: Other diseases of mediastinum, not elsewhere class Allergies: Allergies Allergy/AdvReac Type Severity Reaction Status Date / Time No Known Allergies Allergy Verified 01/30/24 13:32 Plan I have reviewed the history and physical and performed a pertinent physical examination on my patient. No changes have occurred unless specified. Time Spent With Patient Time: Total time managing care of this patient today ____ minutes.
[2024-02-02 07:18] VITALS: BMI 24.3
[2024-02-02 07:33] VITALS: BP 116/72; PULSE 70; RESP 16; TEMP 37.1; O2SAT 100
[2024-02-02] MEDS: Lactated Ringers 1,000 ML 100 ML IVCONT (07:54)
[2024-02-02 07:58] LABS: Glucose, Whole Blood 103 mg/dL (60-115)
--- NOTE | 2024-02-02 08:10 | HO.ANESPROP2 ---
Documented by User: Wilma Frederick NP 01/31/24 14:28 HPI - Anesthesia Eval Consult details Narrative: 63yo F for Right Wide Local Excision Cervical Lymph Node PMFSH Active Problems Active Problems: All Active Problems (Updated 01/31/24 @ 10:07 by Jesica Solorio RN) Mass of right side of neck (Acute) Breast cancer screening by mammogram (Acute) Colon cancer screening (Acute) Rotator cuff tear (Acute) Shoulder pain, right (Acute) COVID-19 virus infection (Acute) Anemia (Acute) Generalized anxiety disorder (Acute) Finger pain, right (Acute) Syncopal episodes (Acute) Impaired glucose tolerance (Acute) Atrophic vaginitis (Acute) Family history of breast cancer (Acute) Hypertension (Acute) Hypertriglyceridemia (Acute) Knee osteoarthritis (Acute) Restless leg syndrome (Acute) GERD (gastroesophageal reflux disease) (Acute) Degenerative disc disease, lumbar (Acute) Past Medical History Medical History (Updated 01/31/24 @ 10:07 by Jesica Solorio RN) Impaired glucose tolerance History of gastrectomy Hypertension Hypertriglyceridemia Knee osteoarthritis Restless leg syndrome GERD (gastroesophageal reflux disease) Degenerative disc disease, lumbar Family History Family History Father Heart disease Lung cancer CVD (cardiovascular disease) Mother Hypertension Stroke Sister Breast cancer, Onset Age: 53 Maternal Grandmother Breast cancer Surgical History Surgical History (Updated 01/19/24 @ 10:16 by Aiden Mckeon MD) Vaginal hernia Status post panniculectomy Hx of laparoscopic gastric banding H/O LEEP History of lipoma History of removal of cyst History of section Social History Social History Housing: Apartment Alcohol intake: current Alcohol intake frequency: does not drink Patient Tobacco Use Status: Former Tobacco user Tobacco use type: Cigarette e-Cigarette/Vaping Use: Never Used Second Hand Smoke Exposure: No Use of substances other than those prescribed or required for medical reasons: Yes Substance Use Frequency: Occasionally Are you DNR?: No Advance Directives: No Advance Directives Information Provided: Yes Advance Directives on File: No Current occupational status: unemployed Cognitive needs: No Hearing needs: No Vision needs: Yes Meds Allergies Allergy/AdvReac Type Severity Reaction Status Date / Time No Known Allergies Allergy Verified 01/30/24 13:32 Home Medications Medication Instructions Recorded Confirmed Last Taken Type bupropion HCl 150 mg 24 hr tablet, 150 mg PO QAM 09/25/20 01/31/24 Unknown History extended release calcium carbonate 500 mg-vitamin 1 tab PO DAILY 09/25/20 01/31/24 Unknown History D3 5 mcg (200 unit) tablet (Calcium 500 + D) dextroamphetamine-amphetamine 20 20 mg PO DAILY 09/25/20 01/31/24 Unknown History mg tablet (Adderall) glucosamine HCl 500 mg tablet 500 mg PO DAILY 09/25/20 01/31/24 Unknown History lorazepam 1 mg tablet 1 mg PO DAILY PRN Anxiety 09/25/20 01/31/24 02/02/24 History multivitamin 1 tab PO DAILY 09/25/20 01/31/24 Unknown History vit A 7,160 unit-vit C 113 mg-vit 1 tab PO DAILY 09/25/20 01/31/24 Unknown History E 100 rvpj-owfb-[id number] tablet escitalopram oxalate 10 mg tablet 10 mg PO DAILY 04/05/21 01/31/24 Unknown History Exam Height,Weight and Vital Signs: Height 5 ft 8 in Weight 69.853 kg Pertinent Lab Results Pertinent Lab Results: Laboratory Tests 01/05/24 14:21 WBC 7.3 Hgb 12.5 Hct 37.6 Plt Count 298 D Sodium 139 Potassium 4.1 Chloride 101 Carbon Dioxide 30 H BUN 8 L Creatinine 0.70 Assessment and Plan Assessment Anesthesia Assessment: Chart Reviewed Documented by User: Yenny Mahan DO 02/02/24 08:12 [facility] Past Medical History Medical History (Updated 01/31/24 @ 10:07 by Jesiac Solorio RN) Impaired glucose tolerance History of gastrectomy Hypertension Hypertriglyceridemia Knee osteoarthritis Restless leg syndrome GERD (gastroesophageal reflux disease) Degenerative disc disease, lumbar Family History Family History Father Heart disease Lung cancer CVD (cardiovascular disease) Mother Hypertension Stroke Sister Breast cancer, Onset Age: 53 Maternal Grandmother Breast cancer Family history of problems with anesthesia: No Surgical History Surgical History (Updated 01/19/24 @ 10:16 by Aiden Mckeon MD) Vaginal hernia Status post panniculectomy Hx of laparoscopic gastric banding H/O LEEP History of lipoma History of removal of cyst History of section History of Problems with Anesthesia: No Social History Social History Housing: Apartment Alcohol intake: current Alcohol intake frequency: does not drink Patient Tobacco Use Status: Former Tobacco user Tobacco use type: Cigarette e-Cigarette/Vaping Use: Never Used Second Hand Smoke Exposure: No Use of substances other than those prescribed or required for medical reasons: Yes Substance Use Frequency: Occasionally Are you DNR?: No Advance Directives: No Advance Directives Information Provided: Yes Advance Directives on File: No Current occupational status: unemployed Cognitive needs: No Hearing needs: No Vision needs: Yes Meds Allergies Allergy/AdvReac Type Severity Reaction Status Date / Time No Known Allergies Allergy Verified 01/30/24 13:32 Home Medications Medication Instructions Recorded Confirmed Last Taken Type bupropion HCl 150 mg 24 hr tablet, 150 mg PO QAM 09/25/20 01/31/24 Unknown History extended release calcium carbonate 500 mg-vitamin 1 tab PO DAILY 09/25/20 01/31/24 Unknown History D3 5 mcg (200 unit) tablet (Calcium 500 + D) dextroamphetamine-amphetamine 20 20 mg PO DAILY 09/25/20 01/31/24 Unknown History mg tablet (Adderall) glucosamine HCl 500 mg tablet 500 mg PO DAILY 09/25/20 01/31/24 Unknown History lorazepam 1 mg tablet 1 mg PO DAILY PRN Anxiety 09/25/20 01/31/24 02/02/24 History multivitamin 1 tab PO DAILY 09/25/20 01/31/24 Unknown History vit A 7,160 unit-vit C 113 mg-vit 1 tab PO DAILY 09/25/20 01/31/24 Unknown History E 100 iawk-jjin-qxnfgh tablet escitalopram oxalate 10 mg tablet 10 mg PO DAILY 04/05/21 01/31/24 Unknown History Exam Height,Weight and Vital Signs: Height 5 ft 8 in Weight 69.853 kg Height 5 ft 8 in Weight 72.575 kg Vital Signs Temperature 98.8 F 02/02/24 07:33 Pulse Rate 70 02/02/24 07:33 Respiratory Rate 16 02/02/24 07:33 Blood Pressure 116/72 02/02/24 07:33 Pulse Oximetry 100 02/02/24 07:33 Oxygen Delivery Method Room Air 02/02/24 07:33 Temperature 98.8 F 02/02/24 07:33 Pulse Rate 70 02/02/24 07:33 Respiratory Rate 16 02/02/24 07:33 Blood Pressure 116/72 02/02/24 07:33 Pulse Oximetry 100 02/02/24 07:33 Oxygen Delivery Method Room Air 02/02/24 07:33 Airway Mallampati Class: I TM Dist: >3cm Neck ROM: Full Denture: Upper Partial: Lower Heart: S1S2 Lungs: CTAB Assessment and Plan Assessment Anesthesia Assessment: Anesthesia Plan Discussed and Chart Reviewed Final Anesthetic Review Family History of Problems with Anesthesia: No History of Problems with Anesthesia: No NPO: Yes ASA Class: II Final Preanesthetic Review: No Changes in Pt Med Stat, Meds/Allgs Chart Reviewed, Consent Obtained/Reviewed and Anes Risks/Benef Reviewed Patient Risk: Low Procedure Risk: Low Anesthetic Plan Anesthetic Plan: MAC: and Agree w/ Assess. and Plan Disposition: Standard PACU
[2024-02-02 09:00] VITALS: BP 111/61; PULSE 67; RESP 16; TEMP 36.2; O2SAT 95
[2024-02-02 09:15] VITALS: BP 131/80; PULSE 60; RESP 14; O2SAT 99
--- NOTE | 2024-02-02 09:22 | W.PM.OPN ---
Operative Note Operative Note Date of Service: 02/02/24 Narrative: Preoperative diagnosis: [] Mid right cervical mass Postop diagnosis: [] Same Procedure [] excision right cervical mass/lymph node Surgeon: [] Mike Web Production Designer: [] William Type of Anesthesia: [] MAC Indication for surgery: [] Markedly indurated retro sternocleidomastoid mass suggestive of a lymph node. Specimen sent to pathology Findings: [] Patient brought to the operating room, placed on operative table supine position, after adequate level of MAC anesthesia was induced, the right neck and chest were prepped and draped in usual sterile fashion. Using a transverse incision the the right mid neck over the mass in question, this carried down through skin, subcutaneous tissue, cervical fascia. Latissimus dorsi muscle was retracted posteriorly, and an indurated mass was circumferentially dissected out using combination of blunt and Bovie dissection from the posterior aspect of the sternocleidomastoid well away from the internal jugular vein. Specimen sent to pathology. Wound was irrigated, secured hemostasis, and closed in the following manner; cervical fascia was reapproximated using interrupted 3-0 Vicryl suture. Interrupted inverted deep dermal 3-0 Vicryl sutures followed by running subcuticular 4-0 Vicryl sutures were placed. Steri-Strips and sterile dressings were applied. Wound was infiltrated with 0.5% Marcaine/1% lidocaine at the beginning and the end of the case. Sponge, needle, and instrument counts were reported correct. Patient tolerated the procedure well and emerged from anesthesia stable condition. EBL minimal
[2024-02-02 09:30] VITALS: BP 142/81; PULSE 58; RESP 16; TEMP 36.2; O2SAT 98
== END 2024-02-02 09:55 | disposition home or self-care (01) ==
PROVIDERS: PCP Internal Medicine; Visit Provider Surgery
PROC: (CPT 38500; principal; 2024-02-02 08:40)
DX: J98.59 Other diseases of mediastinum, not elsewhere classified (principal); R22.1 Localized swelling, mass and lump, neck; I88.8 Other nonspecific lymphadenitis; I10 Essential (primary) hypertension; E78.1 Pure hyperglyceridemia; R73.02 Impaired glucose tolerance (oral); K21.9 Gastro-esophageal reflux disease without esophagitis; M51.36 Other intervertebral disc degeneration, lumbar region; Z79.899 Other long term (current) drug therapy; Z90.3 Acquired absence of stomach [part of]; Z98.84 Bariatric surgery status; Z87.891 Personal history of nicotine dependence
CPT/HCPCS: 38510; 36415; 82947; 88184; 88185; 88305; 88312; 88333; 88341; 88342; J0690; J2250; J2704; J2795; J3010

== ENCOUNTER → 2024-02-02 07:04 | Outpatient (BNV) | payer MEDICARE, MEDICAID, SELFPAY | PROVIDERS: PCP Internal Medicine; Visit Provider Surgery | DX: I88.1 Chronic lymphadenitis, except mesenteric (principal) | CPT/HCPCS: 38510 ==

== ENCOUNTER 2024-02-13 09:31 | Outpatient (AMB) | payer MEDICARE, MEDICAID, SELFPAY ==
[2024-02-13 09:40] VITALS: BP 139/67; PULSE 102
--- NOTE | 2024-02-13 09:40 | MHC.OFFVIS ---
Intake Vital Signs 02/13/24 09:40 Weight 150 lb BP 139/67 Blood Pressure Location Rt brachial Position Sitting Pulse 102 H Intake Visit Reasons: S/P WLE Rt. cervical lymph node Intake Note: Patient here s/p WLE Rt cervical lymph node. Reports incision healing well. Patient c/o: tenderness to touch. SX: 02-02-24. Human Performance Professor Required: No Accompanied by: Self / Same As Patient Allergies No Known Allergies Allergy (Verified 02/13/24 09:41) HPI HPI Comments History of Present Illness Details Patient presents for follow-up. Aside from improving incisional discomfort she is otherwise doing well. Pathology was reviewed and was consistent with a benign process. [facility] Medical History Impaired glucose tolerance History of gastrectomy Hypertension Hypertriglyceridemia Knee osteoarthritis Restless leg syndrome GERD (gastroesophageal reflux disease) Degenerative disc disease, lumbar Surgical History Vaginal hernia Status post panniculectomy Hx of laparoscopic gastric banding H/O LEEP History of lipoma History of removal of cyst History of section Family History Father Heart disease Lung cancer CVD (cardiovascular disease) Mother Hypertension Stroke Sister Breast cancer, Onset Age: 53 Maternal Grandmother Breast cancer Social History Housing: Apartment Alcohol intake: current Alcohol intake frequency: does not drink Patient Tobacco Use Status: Former Tobacco user Tobacco use type: Cigarette e-Cigarette/Vaping Use: Never Used Second Hand Smoke Exposure: No Current occupational status: unemployed Cognitive needs: No Hearing needs: No Vision needs: Yes Female Reproductive History Menstrual Age of Menarche: 11 Physical Exam Vital Signs: Last Vital Signs Pulse 102 H 02/13/24 09:40 BP 139/67 02/13/24 09:40 Neck Other: Incision clean dry and intact, healing well. Assessment & Plan Assessment & Plan (1) Status post dissection of cervical lymph nodes: Code(s): Z98.890 - Other specified postprocedural states Plan From my perspective, patient is doing well and will continue her convalescence. She will see me in a few weeks' time. In the meantime, she was called by Oncology office for follow-up and will see them Monday. Coding Level of Care Code Global (64268) Diagnoses Status post dissection of cervical lymph nodes Z98.890
== END 2024-02-13 09:54 | disposition home or self-care (01) ==
PROVIDERS: PCP Internal Medicine; Visit Provider Surgery
DX: Z98.890 Other specified postprocedural states (principal)
CPT/HCPCS: 99024

== ENCOUNTER → 2024-02-13 09:31 | Outpatient (BNVA) | payer MEDICARE, MEDICAID, SELFPAY | PROVIDERS: PCP Internal Medicine; Visit Provider Surgery | DX: Z98.890 Other specified postprocedural states (principal) | CPT/HCPCS: 99212 ==

== ENCOUNTER → 2024-02-16 12:35 | Outpatient (BNV) | payer MEDICARE, MEDICAID, SELFPAY | PROVIDERS: PCP Internal Medicine; Referring Provider Surgery; Visit Provider Internal Medicine | DX: R59.0 Localized enlarged lymph nodes (principal) | CPT/HCPCS: 99204; 99214 ==

== ENCOUNTER 2024-03-05 14:45 | Outpatient (AMB) | payer MEDICARE, MEDICAID, SELFPAY ==
--- NOTE | 2024-03-05 14:48 | A.OFFVIS_ITS ---
Intake Intake Visit Reasons: S/P WLE Rt. cervical lymph node Intake Note: Patient here s/p WLE on Mid rt cervical lymph node on 02-02-24. Reports incision healing well. Patient c/o: denies concerns. Government Affairs Fellow Required: No Accompanied by: Self / Same As Patient Allergies No Known Allergies Allergy (Verified 03/05/24 14:48) HPI HPI Comments History of Present Illness Details Patient presents for follow-up status post right cervical lymph node biopsy. She is also being seen by Oncology which is concerning her workup including a follow-up CT scan of the neck for April 05. Patient has no incisional issues or complaints. [facility] BY [facility] Medical History Impaired glucose tolerance History of gastrectomy Hypertension Hypertriglyceridemia Knee osteoarthritis Restless leg syndrome GERD (gastroesophageal reflux disease) Degenerative disc disease, lumbar Surgical History Vaginal hernia Status post panniculectomy Hx of laparoscopic gastric banding H/O LEEP History of lipoma History of removal of cyst History of section Family History Father Heart disease Lung cancer CVD (cardiovascular disease) Mother Hypertension Stroke Sister Breast cancer, Onset Age: 53 Maternal Grandmother Breast cancer Social History Housing: Apartment Alcohol intake: current Alcohol intake frequency: does not drink Patient Tobacco Use Status: Former Tobacco user Tobacco use type: Cigarette e-Cigarette/Vaping Use: Never Used Second Hand Smoke Exposure: No Current occupational status: unemployed Cognitive needs: No Hearing needs: No Vision needs: Yes Female Reproductive History Menstrual Age of Menarche: 11 Physical Exam Neck Other: Incision clean dry and intact healing uneventfully. Assessment & Plan Assessment & Plan (1) Postop check: Code(s): Z09 - Encounter for follow-up examination after completed treatment for conditions other than malignant neoplasm Plan Patient is as noted above continuing her workup with oncology. Further interventions and studies will be directed by the results of her collection of lab work and CT scan. All questions answered. At present, patient will follow- up p.r.n.. Coding Level of Care Code Global (77469) Diagnoses Postop check Z09
== END 2024-03-05 15:01 | disposition home or self-care (01) ==
PROVIDERS: PCP Internal Medicine; Visit Provider Surgery
DX: Z09 Encounter for follow-up examination after completed treatment for conditions other than malignant neoplasm (principal)
CPT/HCPCS: 99024

== ENCOUNTER → 2024-03-05 14:45 | Outpatient (BNVA) | payer MEDICARE, MEDICAID, SELFPAY | PROVIDERS: PCP Internal Medicine; Visit Provider Surgery | DX: Z09 Encounter for follow-up examination after completed treatment for conditions other than malignant neoplasm (principal); Z98.890 Other specified postprocedural states | CPT/HCPCS: 99212 ==

== ENCOUNTER 2024-04-05 08:00 | Outpatient (REF) | payer MEDICARE, MEDICAID, SELFPAY ==
--- NOTE | ~2024-04-05 | CT_ITS ---
EXAMINATION: CT CHEST WITH CONTRAST CLINICAL INFORMATION: Weight loss and lymphadenopathy. COMPARISON: None available. TECHNIQUE: Multidetector volumetric CT imaging of the chest was obtained after the administration of 80 mL of Omnipaque 350 intravenous contrast without immediate adverse reactions. Axial MIP volume rendering provided. Sagittal and coronal reformatted images were obtained. This CT examination was performed using dose optimization techniques as appropriate, variously including the following: *Automated exposure control *Adjustment of mA and/or kV according to patient size (this includes techniques or standardized protocols for targeted exams where dose is matched to indication/reason for exam; i.e. extremities or head) *Use of iterative reconstruction technique DLP: 287.3 mGy-cm FINDINGS: TEST FIXTURE ASSEMBLER: The lungs are grossly clear. There is mild elevation of the right hemidiaphragm. LUNGS: Within the posterior segment of the right upper lobe (7:260), a 3 mm noncalcified nodule is seen. Within the superior segment of the right lower lobe (7:340), a 3 mm noncalcified subpleural nodule is seen. In the posterior basal segment of the right lower lobe (7:445), a 3 mm noncalcified nodule is seen. There is mild bibasilar dependent hypoaeration. No mass, infiltrate or groundglass opacity is seen. There is a focus of minimal scar/subsegmental atelectasis within the apicoposterior segment of the left upper lobe, without associated focal airway obstruction. No generalized increase is seen in peripheral interlobular septal markings. No bleb or bullous formation is seen. No small airway thickening is seen. No bronchiectasis is seen. The central airways appear patent. MEDIASTINUM: The thyroid is unremarkable. There is no thoracic aortic aneurysm or dissection. There are atherosclerotic calcifications of the thoracic aorta. No mediastinal or hilar lymphadenopathy is seen. PLEURA: There is no pleural effusion. No pleural mass or thickening. AXILLA: No lymphadenopathy. UPPER ABDOMEN: There are gastroesophageal surgical clips. The included adrenal glands are unremarkable. OSSEOUS STRUCTURES: There is degenerative disc disease at C6-C7. There is multi-level mild thoracic spondylosis. No acute or aggressive osseous finding is noted. CT/CT chest w IV con IMPRESSION: 1. There are tiny noncalcified, nonspecific bilateral lung nodules, as detailed. According to the UPDATED 2017 Fleischner Society recommendations, the advised follow-up imaging for solid nodules < 6 mm is: LOW RISK PATIENT: No routine follow-up. HIGH RISK PATIENT: Optional CT at 12 months. 2. No mass, infiltrate or groundglass opacity is seen. 3. There is no thoracic lymphadenopathy or pleural effusion. 4. There are degenerative changes of the spine. No acute or aggressive osseous finding is noted. Fleischner guidelines were followed.
--- NOTE | ~2024-04-05 | CT_ITS ---
EXAMINATION: CT SOFT TISSUE NECK WITH CONTRAST CLINICAL INFORMATION: Cervical lymphadenopathy COMPARISON: [facility] 01/05/2024 TECHNIQUE: Following the administration of 80 mL of Omnipaque 350 intravenous contrast, helical imaging was performed in the axial plane with generation of coronal and sagittal reformatted images. This CT examination was performed using dose optimization techniques as appropriate, variously including the following: *Automated exposure control. *Adjustment of mA and/or kV according to patient size (this includes techniques or standardized protocols for targeted exams where dose is matched to indication/reason for exam; i.e. extremities or head). *Use of iterative reconstruction technique. DLP: 244 mGy-cm. FINDINGS: Interval favorable treatment response of previously seen altagracia disease. A heterogeneously enhancing centrally necrotic right level III lymph node is no longer visualized, now with subtle effacement of the adjacent fat to the right sternocleidomastoid muscle marginating the right internal jugular vein with resolved mass effect on the right internal jugular vein. Decreased size of a right level IIA lymph node now measuring 1.0 cm in long axis, previously 1.4 cm. Additional previously seen asymmetric right cervical chain lymph nodes have decreased in size and number. No evidence of new or progressive altagracia disease. The fat planes of the skull base and soft tissues of the nasopharynx are unremarkable. The paranasal sinuses and mastoid air cells are well aerated. The temporomandibular joints are normal. Redemonstrated metallic foreign body within the right sublingual space that can be correlated clinically. Streak artifact limits assessment of the adjacent oral cavity, which is otherwise unremarkable. Calcified bilateral palatine tonsilloliths. Redemonstrated asymmetric enhancing soft tissue fullness of the right palatine tonsillar fossa. The remainder of the pharyngeal mucosal space is normal. The laryngeal structures are opposed, limiting assessment. The submandibular and parotid glands are normal. The thyroid gland is normal. The partially visualized lung apices are clear. Mild calcific plaque of the aortic arch. Normal opacification of the major neck vessels. Stable cervical spondylosis and focal ossification of the posterior longitudinal ligament at the inferior C5 level contributing to stable multilevel apparent moderate spinal canal narrowing with mass effect along the cord and multilevel severe neural foraminal stenosis. Redemonstrated severe C4-C5 and moderate C6-C7 disc height loss with prominent subchondral eburnation and opposing endplate Schmorl's nodes/pneumatocysts. The imaged portions of the brain parenchyma are unremarkable. CT/CT soft tissue neck w IV con IMPRESSION: 1. Interval favorable treatment response of previously seen altagracia disease. A heterogeneously enhancing centrally necrotic right level III lymph node is no longer visualized, now with subtle effacement of the adjacent fat to the right sternocleidomastoid muscle marginating the right internal jugular vein with resolved mass effect on the right internal jugular vein. Additional previously seen asymmetric right cervical chain lymph nodes have decreased in size and number. No evidence of new or progressive altagracia disease. 2. Redemonstrated asymmetric enhancing soft tissue fullness of the right palatine tonsillar fossa.
[2024-04-05] MEDS: iohexoL 350 MG/ML 100 ML INFUS..BTL IV (08:47)
[2024-04-09 15:34] LABS: Creatinine POC 0.6 mg/dL (0.5-1.4); GFR POC > 60
== END 2024-04-05 08:01 | disposition home or self-care (01) ==
LOC: HO.CT 08:00
PROVIDERS: PCP Internal Medicine; Visit Provider Internal Medicine
DX: R22.1 Localized swelling, mass and lump, neck (principal); R63.4 Abnormal weight loss
CPT/HCPCS: 70491; 71260; 82565; Q9967

== ENCOUNTER 2024-04-08 15:24 | Outpatient (AMB) | payer MEDICARE, MEDICAID, SELFPAY ==
[2024-04-08 15:28] VITALS: BP 144/92; PULSE 80; O2SAT 98; BMI 23.5
--- NOTE | 2024-04-08 15:28 | MHC.PC.OV ---
Vital Signs 04/08/24 15:28 Height 5 ft 7 in Weight 150 lb BMI 23.5 BP 144/92 H Blood Pressure Location Lt brachial Position Sitting Pulse 80 Pulse Source Pulse Oximeter Pulse Oximetry (%) 98 Oxygen Delivery Method Room Air Intake Visit Reasons: 3mth f/u Allergies No Known Allergies Allergy (Verified 04/08/24 15:29) Tobacco use date assessed: 01/30/24 Fall risk assessment: No Falls in past year Last assessed Fall Risk: 04/08/24 Dental Screening Dental Screen Date: 04/08/24 Did you have a dental visit in the last 12 months?: Yes Did you have a dental problem in the last 6 months where you did not have access to dental care?: No Was dental information given to patient?: Patient has dentist HPI 3mth f/u HPI Details 63-year-old female with a history of hypertension GERD lumbar degenerative disc disease generalized anxiety disorder coming in for follow-up. Last seen in January 2024 had right side neck mass. Follow-up CT scan done on the neck showing treatment response centrally necrotic right level 3 lymph node no longer visualized resolved mass effect on the right internal jugular. Also noted asymmetric enhancing soft tissue fullness of the right palatine tonsillar fossa CT scan done in March 2024 of the chest nonspecific bilateral lung nodules has with the patient the finding on the CT scan but will be seeing the hematology oncology tomorrow. Patient also complains of having loose skin on both arms and would like to have this taken care of. As for the lower back would like to have refills on the pain medication. [facility] Medical History Impaired glucose tolerance History of gastrectomy Hypertension Hypertriglyceridemia Knee osteoarthritis Restless leg syndrome GERD (gastroesophageal reflux disease) Degenerative disc disease, lumbar Surgical History Vaginal hernia Status post panniculectomy Hx of laparoscopic gastric banding H/O LEEP History of lipoma History of removal of cyst History of section Family History Father Heart disease Lung cancer CVD (cardiovascular disease) Mother Hypertension Stroke Sister Breast cancer, Onset Age: 53 Maternal Grandmother Breast cancer Social History (Reviewed 03/05/24 @ 14:49 by EDWARD Celis Housing: Apartment Alcohol intake: current Alcohol intake frequency: does not drink Patient Tobacco Use Status: Former Tobacco user Tobacco use type: Cigarette e-Cigarette/Vaping Use: Never Used Second Hand Smoke Exposure: No Current occupational status: unemployed Cognitive needs: No Hearing needs: No Vision needs: Yes Female Reproductive History Menstrual Age of Menarche: 11 Questionnaire PHQ-9 Over the last 2 weeks, how often have you been bothered by any of the following problems? 1. Little interest or pleasure in doing things: more than half the days 2. Feeling down, depressed, or hopeless: more than half the days 3. Trouble falling or staying asleep, or sleeping too much: not at all 4. Feeling tired or having little energy: more than half the days 5. Poor appetite or overeating: more than half the days 6. Feeling bad about yourself - or that you are a failure or have let yourself or your family down: more than half the days 7. Trouble concentrating on things, such as reading the newspaper or watching television: nearly every day 8. Moving or speaking so slowly that other people could have noticed. Or the opposite - being so fidgety or restless that you have been moving around a lot more than usual: several days 9. Thoughts that you would be better off or of hurting yourself in some way: not at all Total score: 14 19748 - PHQ-9 Billing: Yes Source: Developed by Drs. Twin Sierra, John Miles and colleagues, with an educational elana from [employer]. Thrive Questionnaire Date Thrive assessed: 01/05/24 AUDIT C Alcohol Use Questionnaire (AUDIT-C) 1. How often do you have a drink containing alcohol?: Monthly or less 2. How many drinks containing alcohol do you have on a typical day when you are drinking?: 1 or 2 3. How often do you have six or more drinks on one occasion?: Never Total Score: 1 ASHLEY-7 AMB Questionnaire ASHLEY-7 Date ASHLEY - 7 assessed: 01/05/24 Source: Developed by Drs. Twin Sierra, John Miles and colleagues, with an educational elana from [employer]. Physical exam (Primary Care) Vital Signs: Last Vital Signs Pulse 80 04/08/24 15:28 BP 144/92 H 04/08/24 15:28 Pulse Ox 98 04/08/24 15:28 Oxygen Delivery Method Room Air 04/08/24 15:28 BMI result Body Mass Index 23.5 Tobacco/Smoking Status: Tobacco use Status Tobacco use date assessed 01/30/24 04/08/24 15:35 Patient Tobacco Use Status Former Tobacco user 04/08/24 15:35 Tobacco use type Cigarette 04/08/24 15:35 e-Cigarette/Vaping Use Never Used 04/08/24 15:35 PHQ-9: PHQ-9 Score PHQ-9: Total score 14 04/08/24 15:35 Thrive Assessment: Date of Thrive Assessment Date Thrive assessed 01/05/24 04/08/24 15:35 Const General: alert; No acute distress Eyes Conjunctivae: conjunctivae normal Resp Auscultation: clear to auscultation bilaterally Cardio Rate: regular rate Rhythm: regular rhythm GI Inspection: Yes normal to inspection Extrem General: Yes normal to inspection and No edema Assessment and Plan Assessment & Plan (1) Lymphadenopathy of right cervical region: Code(s): R59.0 - Localized enlarged lymph nodes Plan: Patient is presently being followed up by hematology oncology and the surgeon. CT scan of the chest done (2) Degenerative disc disease, lumbar: Code(s): M51.36 - Other intervertebral disc degeneration, lumbar region Plan: Narcotic pain meds: Is being prescribed with the understanding that these medications are potentially addictive and should be used only when absolutely necessary and must always be secured. Any remaining pills should be safely disposed off appropriately. Patient is advised that narcotics can impaired judgment and one should not drive or operate heavy machinery while taking these medications. Never share these medications with anybody and do not leave them unattended. They will not be replaced under any circumstances. (3) GERD (gastroesophageal reflux disease): Code(s): K21.9 - Gastro-esophageal reflux disease without esophagitis Qualifiers: Esophagitis presence: without esophagitis Qualified Code(s): K21.9 - Gastro-esophageal reflux disease without esophagitis Plan: Avoid the foods that causes that usually spicy foods, tomato products, juices, coffee, soda and foods that your sensitive to. After eating do not lie down, allow 3-4 hours before in lie down. And keep the head of bed above 30 degrees to avoid the acid from going up. (4) Hypertension: Code(s): I10 - Essential (primary) hypertension Qualifiers: Hypertension type: essential hypertension Qualified Code(s): I10 - Essential (primary) hypertension Plan: Continue with blood pressure medication. Decrease salt intake and exercise presently taking lisinopril 5 mg once a day (5) Generalized anxiety disorder: Comment: [facility] Counseling Code(s): F41.1 - Generalized anxiety disorder Plan: Continue with counseling and therapy (6) Excess skin of arm: Code(s): L98.7 - Excessive and redundant skin and subcutaneous tissue Orders: Referrals Plastic Surgery Referral L98.7 - Excessive and redundant skin and subcutaneous tissue Medications: Refilled oxycodone-acetaminophen 5-325 mg 1 tab PO DAILY PRN 30 tabs 0RF pain R73.02 - Impaired glucose tolerance (oral) omeprazole 40 mg PO QAM 90 caps 2RF Coding Level of Care Code Est Pt Level 4 (56356) Diagnoses Lymphadenopathy of right cervical region R59.0 Degenerative disc disease, lumbar M51.36 Gastroesophageal reflux disease without esophagitis K21.9 Esophagitis presence: without esophagitis Essential hypertension I10 Hypertension type: essential hypertension Generalized anxiety disorder F41.1 Excess skin of arm L98.7
== END 2024-04-08 16:04 | disposition home or self-care (01) ==
PROVIDERS: PCP Internal Medicine; Visit Provider Internal Medicine
DX: R59.0 Localized enlarged lymph nodes (principal); M51.36 Other intervertebral disc degeneration, lumbar region; K21.9 Gastro-esophageal reflux disease without esophagitis; I10 Essential (primary) hypertension; F41.1 Generalized anxiety disorder; L98.7 Excessive and redundant skin and subcutaneous tissue
CPT/HCPCS: 99214

== ENCOUNTER 2024-05-01 13:04 | Outpatient (REF) | payer MEDICARE, MEDICAID, SELFPAY ==
[2024-05-10 03:49] LABS: HPV mRNA E6/E7 rflx Not Detected (Not Detected)
== END 2024-05-01 13:05 | disposition home or self-care (01) ==
LOC: HO.LNP 13:04
PROVIDERS: PCP Internal Medicine; Visit Provider Advanced Practice Midwife
DX: Z01.419 Encounter for gynecological examination (general) (routine) without abnormal findings (principal)
CPT/HCPCS: 87624; 88142; G0101; Q0091

== ENCOUNTER 2024-05-01 13:04 | Outpatient (AMB) | payer MEDICARE, MEDICAID, SELFPAY ==
[2024-05-01 13:19] VITALS: BP 140/80; BMI 23.2
--- NOTE | 2024-05-01 13:19 | MHC.OFFVIS ---
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 She is doing well with no concerns. Attempting to eat a healthy diet with calcium and vitamin D and stays active with exercise. Currently not sexually active. Denies any vaginal dryness or irritation. STI testing offered; she declines. Last pap smear; 2020. LEEP 1999. Last mammogram; 2022. ColoGard is UTD. Denies any family history of breast, ovarian or colon cancer. [facility] Medical History Impaired glucose tolerance History of gastrectomy Hypertension Hypertriglyceridemia Knee osteoarthritis Restless leg syndrome GERD (gastroesophageal reflux disease) Degenerative disc disease, lumbar Surgical History Vaginal hernia Status post panniculectomy Hx of laparoscopic gastric banding H/O LEEP History of lipoma History of removal of cyst History of section Family History Father Heart disease Lung cancer CVD (cardiovascular disease) Mother Hypertension Stroke Sister Breast cancer, Onset Age: 53 Maternal Grandmother Breast cancer Social History (Updated 05/01/24 @ 13:26 by JOSEFINA [facility]) Housing: Apartment Alcohol intake: current Alcohol intake frequency: does not drink Patient Tobacco Use Status: Former Tobacco user Tobacco use type: Cigarette e-Cigarette/Vaping Use: Never Used Second Hand Smoke Exposure: No Substance Use Type: Marijuana Current occupational status: unemployed Cognitive needs: No Hearing needs: No Vision needs: Yes Female Reproductive History Menstrual Age of Menarche: 11 control method: none Total pregnancies: 2 Full term: 2 Number of Living Children: 2 Date of last pap smear: 01/05/21 (negative) History of abnormal pap smear: Yes (1999 [facility]) Date of Mammogram: 10/07/23 Review of Systems Const All systems reviewed & are unremarkable except as noted in HPI and below Reports as per HPI Eyes Reports no additional complaints ENT Reports no additional complaints Card Reports no additional complaints Resp Reports no additional complaints GI Reports as per HPI and Reports no additional complaints Reports as per HPI Musc Reports no additional complaints Skin/Breast Reports as per HPI Neuro Reports no additional complaints Psych Reports no additional complaints Endo Reports no additional complaints Matti/Lymph Reports no additional complaints Aller/Immun Reports no additional complaints Physical Exam Vital Signs: Last Vital Signs BP 140/80 H 05/01/24 13:19 BMI result Body Mass Index 23.2 Const General: cooperative, healthy appearing, no acute distress, well developed and alert Orientation/consciousness: patient oriented x3 HEENT Head: Yes normal to inspection Eyes General: appearance normal, both eyes and all related structures Neck Neck: Yes normal visual inspection Thyroid: Thyroid normal Chest Chest palpation & inspection: normal inspection of the chest and other (no puckering, dimpling, peau de orange, retraction, discharge, masses) Breast/axilla inspection: normal inspection of the breasts Breast/axilla palpation: normal palpation of the breasts Resp Effort & Inspection: normal respiratory effort GI Inspection: Yes normal to inspection and Yes scar Palpation (GI): Soft to palpation Rectal Exam - Female: deferred General: Yes bladder normal to palpation External Female Exam: normal external appearance and normal appearance of the urethra Speculum Exam - Vagina: normal appearance of the vagina, normal palpation, normal vaginal discharge and vagina atrophic Speculum Exam - Cervix: normal appearance of the cervix, normal palpation and Other cervical findings present (Bled slightly with Pap) Bimanual exam- vagina & uterus: normal bimanual exam, normal palpation, uterine size normal, bladder normal to palpation, normal palpation and non-tender Bimanual Exam- Adnexa, other: no masses Skin General skin exam: no rashes or lesions noted Rashes: no rashes Neuro General: patient oriented x3 Cognition (Neuro): normal cognition Extrem General: Yes normal to inspection Psych Attitude: cooperative Thought process: Normal thought process present Assessment & Plan Assessment & Plan (1) Encounter for well woman exam with routine gynecological exam: Code(s): Z01.419 - Encounter for gynecological examination (general) (routine) without abnormal findings Category: Medical Plan Discussed: Current recommendations for pap smears per ASCCP guidelines. Breast awareness, periodic self breast exams and yearly mammogram. Maintain a healthy lifestyle, well balanced diet including Calcium 1,200 mg and Vitamin D 600 IU daily, and routine exercise. Use of condoms for STI if indicated. Due to her history of atrophic vaginitis with vaginal hernia, advised to come in for consult before ever becoming sexually active again to initiate estrogen therapy if no contraindications to use. Contact the office with any postmenopausal bleeding. Patient verbalizes understanding and agrees to the plan of care. She was given opportunity to ask questions and all questions were answered to the best of my ability. 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 This note is constructed using voice recognition software. While every effort has been made to ensure accuracy, glass processing worker errors may have been included. Coding Level of Care Code Est Pt Prev Care >65y(39798) Diagnoses Encounter for well woman exam with routine gynecological exam Z01.419
== END 2024-05-01 13:56 | disposition home or self-care (01) ==
PROVIDERS: PCP Internal Medicine; Referring Provider Internal Medicine; Visit Provider Advanced Practice Midwife
DX: Z01.419 Encounter for gynecological examination (general) (routine) without abnormal findings (principal)
CPT/HCPCS: G0101; Q0091

== ENCOUNTER 2024-08-19 15:30 | Outpatient (AMB) | payer MEDICARE, MEDICAID, SELFPAY ==
[2024-08-19 15:36] VITALS: BP 138/72; PULSE 91; O2SAT 97; BMI 22.8
--- NOTE | 2024-08-19 15:36 | MHC.PC.OV ---
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 Patient is up-to-date with mammogram Pap smear Cologuard testing. Patient has seen hematology oncology for the right neck lymphadenopathy CT scan performed in December revealed enhancing necrotic right level 3 cervical lymph node measuring 2.6 cm had excisional biopsy findings consistent with metastatic disease and then had excisional biopsy in 02/14/2024 granulomatous lymphadenitis.. concer about [facility] Medical History Impaired glucose tolerance History of gastrectomy Hypertension Hypertriglyceridemia Knee osteoarthritis Restless leg syndrome GERD (gastroesophageal reflux disease) Degenerative disc disease, lumbar Surgical History Vaginal hernia Status post panniculectomy Hx of laparoscopic gastric banding H/O LEEP History of lipoma History of removal of cyst History of section Family History Father Heart disease Lung cancer CVD (cardiovascular disease) Mother Hypertension Stroke Sister Breast cancer, Onset Age: 53 Maternal Grandmother Breast cancer Social History (Updated 05/01/24 @ 13:26 by JOSEFINA Ashley) Housing: Apartment Alcohol intake: current Alcohol intake frequency: does not drink Patient Tobacco Use Status: Former Tobacco user Tobacco use type: Cigarette e-Cigarette/Vaping Use: Never Used Second Hand Smoke Exposure: No Substance Use Type: Marijuana service: No Current occupational status: unemployed Cognitive needs: No Hearing needs: No Vision needs: Yes Female Reproductive History Menstrual Age of Menarche: 11 Questionnaire Thrive Questionnaire Date Thrive assessed: 01/05/24 Are you currently unemployed and looking for a job?: I choose not to answer this question ASHLEY-7 AMB Questionnaire ASHLEY-7 Date ASHLEY - 7 assessed: 01/05/24 Source: Developed by Drs. Twin Sierra, Sandra العراقي, John Najera and colleagues, with an educational elana from [employer]. Physical exam (Primary Care) Vital Signs: Last Vital Signs Pulse 91 08/19/24 15:36 BP 138/72 08/19/24 15:36 Pulse Ox 97 08/19/24 15:36 Oxygen Delivery Method Room Air 08/19/24 15:36 BMI result Body Mass Index 22.8 Tobacco/Smoking Status: Tobacco use Status Tobacco use date assessed 01/30/24 08/19/24 15:40 Patient Tobacco Use Status Former Tobacco user 08/19/24 15:40 Tobacco use type Cigarette 08/19/24 15:40 e-Cigarette/Vaping Use Never Used 08/19/24 15:40 Thrive Assessment: Date of Thrive Assessment Date Thrive assessed 01/05/24 08/19/24 15:40 Const General: alert; No acute distress Eyes Conjunctivae: conjunctivae normal Resp Auscultation: clear to auscultation bilaterally Cardio Rate: regular rate Rhythm: regular rhythm GI Inspection: Yes normal to inspection Extrem General: Yes normal to inspection and No edema Assessment and Plan Assessment & Plan (1) Lymphadenopathy of right cervical region: Code(s): R59.0 - Localized enlarged lymph nodes Plan: Patient is being followed up by hematology oncology (2) Degenerative disc disease, lumbar: Code(s): M51.36 - Other intervertebral disc degeneration, lumbar region Plan: Narcotic pain meds: Is being prescribed with the understanding that these medications are potentially addictive and should be used only when absolutely necessary and must always be secured. Any remaining pills should be safely disposed off appropriately. Patient is advised that narcotics can impaired judgment and one should not drive or operate heavy machinery while taking these medications. Never share these medications with anybody and do not leave them unattended. They will not be replaced under any circumstances. (3) GERD (gastroesophageal reflux disease): Code(s): K21.9 - Gastro-esophageal reflux disease without esophagitis Qualifiers: Esophagitis presence: without esophagitis Qualified Code(s): K21.9 - Gastro-esophageal reflux disease without esophagitis Plan: Avoid the foods that causes that usually spicy foods, tomato products, juices, coffee, soda and foods that your sensitive to. After eating do not lie down, allow 3-4 hours before in lie down. And keep the head of bed above 30 degrees to avoid the acid from going up. (4) Hypertriglyceridemia: Code(s): E78.1 - Pure hyperglyceridemia Plan: Avoid fried foods, chicken skin, eggs, butter margarine, pastries and meat. Be it pork or beef they have a lot of cholesterol . (5) Hypertension: Code(s): I10 - Essential (primary) hypertension Qualifiers: Hypertension type: essential hypertension Qualified Code(s): I10 - Essential (primary) hypertension Plan: Continue with blood pressure medication. Decrease salt intake and exercise lisinopril 5 mg once a day (6) Impaired glucose tolerance: Code(s): R73.02 - Impaired glucose tolerance (oral) Plan: Decrease the amount of carbohydrate intake, pasta, bread, rice and potatoes are all sugar and that is aside from all the sweet stuff, remember that fruits are good but they are Sweet also. (7) Cognitive impairment: Code(s): R41.89 - Other symptoms and signs involving cognitive functions and awareness Plan: [facility] blood work advised Orders: Orders Complete Blood Count Auto Diff Today K21.9 - Gastro-esophageal reflux disease without esophagitis Free T4 (Free Thyroxine) Today K21.9 - Gastro-esophageal reflux disease without esophagitis Lipid Panel Today E78.00 - Pure hypercholesterolemia, unspecified, K21.9 - Gastro-esophageal reflux disease without esophagitis Vitamin B12 and Folate Today K21.9 - Gastro-esophageal reflux disease without esophagitis Comprehensive Met. Panel Today K21.9 - Gastro-esophageal reflux disease without esophagitis UA CC w/rflx Micro + Cult Today K21.9 - Gastro-esophageal reflux disease without esophagitis, R30.0 - Dysuria Thyroid Stimulating Hormone Today K21.9 - Gastro-esophageal reflux disease without esophagitis Hemoglobin A1c Today K21.9 - Gastro-esophageal reflux disease without esophagitis Vitamin D 25-OH Total Today K21.9 - Gastro-esophageal reflux disease without esophagitis Medications: Refilled oxycodone-acetaminophen 5-325 mg 1 tab PO DAILY PRN 30 tabs 0RF pain R73.02 - Impaired glucose tolerance (oral) Coding Level of Care Code Est Pt Level 4 (53173) Diagnoses Lymphadenopathy of right cervical region R59.0 Degenerative disc disease, lumbar M51.36 Gastroesophageal reflux disease without esophagitis K21.9 Esophagitis presence: without esophagitis Hypertriglyceridemia E78.1 Essential hypertension I10 Hypertension type: essential hypertension Impaired glucose tolerance R73.02 Cognitive impairment R41.89
== END 2024-08-19 16:09 | disposition home or self-care (01) ==
PROVIDERS: PCP Internal Medicine; Visit Provider Internal Medicine
DX: R59.0 Localized enlarged lymph nodes (principal); M51.36 Other intervertebral disc degeneration, lumbar region; K21.9 Gastro-esophageal reflux disease without esophagitis; E78.1 Pure hyperglyceridemia; I10 Essential (primary) hypertension; R73.02 Impaired glucose tolerance (oral); R41.89 Other symptoms and signs involving cognitive functions and awareness

== ENCOUNTER → 2024-08-19 15:30 | Outpatient (BNVA) | payer MEDICARE, MEDICAID, SELFPAY | PROVIDERS: PCP Internal Medicine; Visit Provider Internal Medicine | DX: R59.0 Localized enlarged lymph nodes (principal); M51.36 Other intervertebral disc degeneration, lumbar region; K21.9 Gastro-esophageal reflux disease without esophagitis; E78.1 Pure hyperglyceridemia; I10 Essential (primary) hypertension; R73.02 Impaired glucose tolerance (oral); R41.89 Other symptoms and signs involving cognitive functions and awareness | CPT/HCPCS: 99212 ==

== ENCOUNTER 2024-10-07 11:11 | Outpatient (AMB) | payer MEDICARE, MEDICAID, SELFPAY ==
--- NOTE | 2024-10-07 11:15 | A.OFFPC_ITS ---
Vital Signs 10/07/24 11:16 Height 5 ft 7 in Weight 141 lb 6 oz BMI 22.1 BP 122/84 Blood Pressure Location Lt brachial Position Sitting Pulse 88 Pulse Source Pulse Oximeter Pulse Oximetry (%) 97 Oxygen Delivery Method Room Air Intake Visit Reasons: Rsched from 09/19 Lump on Neck Allergies No Known Allergies Allergy (Verified 10/07/24 11:16) Tobacco use date assessed: 10/07/24 Fall risk assessment: 2 + Falls in past year Last assessed Fall Risk: 10/07/24 Dental Screening Dental Screen Date: 10/07/24 Did you have a dental visit in the last 12 months?: Yes Did you have a dental problem in the last 6 months where you did not have access to dental care?: No Was dental information given to patient?: Patient has dentist HPI Rsched from 09/19 Lump on Neck HPI Details 78-year-old male with uncontrolled diabe steve mellitus hypercholesterolemia GERD generalized anxiety disorder with BPH, coronary artery disease hypertension chronic kidney disease/seen in 08/08/2024. Patient is here for follow-up as for the cervical lymphadenopathy read notes from ear nose and throat diagnosis of granulomatous lymphadenitis with resolution after repeat CT scan. NECK IS BETTER biopsy is better. 1 year R shoulder pain and limited elevation 90 degrees, states occ sugar low ??? will check for BS. [facility] Medical History Impaired glucose tolerance History of gastrectomy Hypertension Hypertriglyceridemia Knee osteoarthritis Restless leg syndrome GERD (gastroesophageal reflux disease) Degenerative disc disease, lumbar Surgical History Vaginal hernia Status post panniculectomy Hx of laparoscopic gastric banding H/O LEEP History of lipoma History of removal of cyst History of section Family History Father Heart disease Lung cancer CVD (cardiovascular disease) Mother Hypertension Stroke Sister Breast cancer, Onset Age: 53 Maternal Grandmother Breast cancer Social History Housing: Apartment Alcohol intake: current Alcohol intake frequency: does not drink Patient Tobacco Use Status: Former Tobacco user Tobacco use type: Cigarette e-Cigarette/Vaping Use: Never Used Second Hand Smoke Exposure: No Substance Use Type: Marijuana service: No Current occupational status: unemployed Cognitive needs: No Hearing needs: No Vision needs: Yes Female Reproductive History Menstrual Age of Menarche: 11 Questionnaire PHQ-9 Over the last 2 weeks, how often have you been bothered by any of the following problems? 1. Little interest or pleasure in doing things: more than half the days 2. Feeling down, depressed, or hopeless: more than half the days 3. Trouble falling or staying asleep, or sleeping too much: not at all 4. Feeling tired or having little energy: more than half the days 5. Poor appetite or overeating: more than half the days 6. Feeling bad about yourself - or that you are a failure or have let yourself or your family down: more than half the days 7. Trouble concentrating on things, such as reading the newspaper or watching television: nearly every day 8. Moving or speaking so slowly that other people could have noticed. Or the opposite - being so fidgety or restless that you have been moving around a lot more than usual: several days 9. Thoughts that you would be better off or of hurting yourself in some way: not at all Total score: 14 Depression Screening Interpretation: Positive Depression Screening Done: Yes Source: Developed by Drs. Twin Sierra, Sandra العراقي, John karu nd colleagues, with an educational elana from [employer]. Thrive Questionnaire Date Thrive assessed: 10/07/24 I am a: Patient What is your living situation today?: I have a steady place to live Within the past 12 months, did the food you bought not last and you didn't have the money to get more?: Never true Within the past 12 months, did you worry whether your food would run out before you got money to buy more?: Never true Do you have trouble paying for medicines?: No Do you have trouble getting transportation to medical appointments?: No Do you have trouble paying your heating and electricity bill?: No Do you have trouble taking care of your child, family member or friend?: No Do you have trouble with day-to-day activities such as bathing, preparing meals, shopping, managing finances, etc.?: No Are you currently unemployed and looking for a job?: I choose not to answer this question Are you interested in more education?: No THRIVE Score: 0 AUDIT C Alcohol Use Questionnaire (AUDIT-C) 1. How often do you have a drink containing alcohol?: Monthly or less 2. How many drinks containing alcohol do you have on a typical day when you are drinking?: 1 or 2 3. How often do you have six or more drinks on one occasion?: Never Total Score: 1 ASHLEY-7 AMB Questionnaire ASHLEY-7 Date ASHLEY - 7 assessed: 01/05/24 Feeling nervous, anxious, or on edge: 2 = More than half the days Not being able to stop or control worryin = More than half the days Worrying too much about different things: 2 = More than half the days Trouble relaxin = Not at all Being so restless that it is hard to sit still: 2 = More than half the days Becoming easily annoyed or irritable: 3 = Nearly every day Feeling afraid as if something awful might happen: 2 = More than half the days Total ASHLEY-7 score (0-4 normal; 5-9 mild; 10-14 moderate; 15-21 severe): 13 Source: Developed by Drs. Twin Sierra, Sandra العراقي, John Najera and colleagues, with an educational elana from [employer]. ASHLEY-7 Assessment Billing ASHLEY-7 Assessment Tool: ASHLEY-7 Assessment 75016 Physical exam (Primary Care) Vital Signs: Last Vital Signs Pulse 88 10/07/24 11:16 BP 122/84 10/07/24 11:16 Pulse Ox 97 10/07/24 11:16 Oxygen Delivery Method Room Air 10/07/24 11:16 BMI result Body Mass Index 22.1 Tobacco/Smoking Status: Tobacco use Status Tobacco use date assessed 10/07/24 10/07/24 11:18 Patient Tobacco Use Status Former Tobacco user 10/07/24 11:18 Tobacco use type Cigarette 10/07/24 11:18 e-Cigarette/Vaping Use Never Used 10/07/24 11:18 PHQ-9: PHQ-9 Score PHQ-9: Total score 14 10/07/24 11:57 Depression Screening Interpretation: Positive Thrive Assessment: Date of Thrive Assessment Date Thrive assessed 10/07/24 10/07/24 11:18 Const General: alert; No acute distress Eyes Conjunctivae: conjunctivae normal Resp Auscultation: clear to auscultation bilaterally Cardio Rate: regular rate Rhythm: regular rhythm GI Inspection: Yes normal to inspection Extrem General: Yes normal to inspection and No edema Coding Level of Care Code Est Pt Level 4 (43013) Diagnoses Lymphadenopathy of right cervical region R59.0 Breast cancer screening by mammogram Z12.31 Degeneration of intervertebral disc of lumbar region with discogenic back pain M51.360 Disc-related pain type: discogenic back pain only Gastroesophageal reflux disease without esophagitis K21.9 Esophagitis presence: without esophagitis Essential hypertension I10 Hypertension type: essential hypertension Impaired glucose tolerance R73.02 Acute pain of right shoulder M25.511 Chronicity: acute Additional Codes ASHLEY-7 Assessment Billing - ASHLEY-7 Assessment Tool: ASHLEY-7 Assessment 13452 ([id number]) Assessment & Plan Assessment & Plan (1) Lymphadenopathy of right cervical region: Code(s): R59.0 - Localized enlarged lymph nodes Category: Medical Plan: Patient has seen ear nose and throat and biopsy done in which the results I do not have. Resolution after repeat CT scan. But noted asymmetry of the tonsils. (2) Breast cancer screening by mammogram: Code(s): Z12.31 - Encounter for screening mammogram for malignant neoplasm of breast Category: Medical Plan: Patient is reminded about the mammogram (3) Degenerative disc disease, lumbar: Code(s): M51.36 - Other intervertebral disc degeneration, lumbar region Category: Medical Qualifiers: Disc-related pain type: discogenic back pain only Qualified Code(s): M51.360 - Other intervertebral disc degeneration, lumbar region with discogenic back pain only Plan: Narcotic pain meds: Is being prescribed with the understanding that these medications are potentially addictive and should be used only when absolutely necessary and must always be secured. Any remaining pills should be safely disposed off appropriately. Patient is advised that narcotics can impaired judgment and one should not drive or operate heavy machinery while taking these medications. Never share these medications with anybody and do not leave them unattended. They will not be replaced under any circumstances. (4) GERD (gastroesophageal reflux disease): Code(s): K21.9 - Gastro-esophageal reflux disease without esophagitis Category: Medical Qualifiers: Esophagitis presence: without esophagitis Qualified Code(s): K21.9 - Gastro-esophageal reflux disease without esophagitis Plan: Avoid the foods that causes that usually spicy foods, tomato products, juices, coffee, soda and foods that your sensitive to. After eating do not lie down, allow 3-4 hours before in lie down. And keep the head of bed above 30 degrees to avoid the acid from going up. (5) Hypertension: Code(s): I10 - Essential (primary) hypertension Category: Medical Qualifiers: Hypertension type: essential hypertension Qualified Code(s): I10 - Essential (primary) hypertension Plan: Continue with blood pressure medication. Decrease salt intake and exercise on lisinopril 5 mg once a day (6) Impaired glucose tolerance: Code(s): R73.02 - Impaired glucose tolerance (oral) Category: Medical Plan: Decrease the amount of carbohydrate intake, pasta, bread, rice and potatoes are all sugar and that is aside from all the sweet stuff, remember that fruits are good but they are Sweet also. (7) Shoulder pain, right: Code(s): M25.511 - Pain in right shoulder Category: Medical Qualifiers: Chronicity: acute Qualified Code(s): M25.511 - Pain in right shoulder Plan: X-ray is requested Orders: Orders Complete Blood Count Auto Diff Today R73.02 - Impaired glucose tolerance (oral) Hemoglobin A1c Today R73.02 - Impaired glucose tolerance (oral) Lipid Panel Today E78.00 - Pure hypercholesterolemia, unspecified, R73.02 - Impaired glucose tolerance (oral) Vitamin B12 and Folate Today R73.02 - Impaired glucose tolerance (oral) Vitamin D 25-OH Total Today R73.02 - Impaired glucose tolerance (oral) Comprehensive Met. Panel Today R73.02 - Impaired glucose tolerance (oral) Free T4 (Free Thyroxine) Today R73.02 - Impaired glucose tolerance (oral) Thyroid Stimulating Hormone Today R73.02 - Impaired glucose tolerance (oral) UA w Microscopic Today R73.02 - Impaired glucose tolerance (oral) XR shoulder RT min 2V Today M25.511 - Pain in right shoulder
[2024-10-07 11:16] VITALS: BP 122/84; PULSE 88; O2SAT 97; BMI 22.1
== END 2024-10-07 12:08 | disposition home or self-care (01) ==
PROVIDERS: PCP Internal Medicine; Visit Provider Internal Medicine
DX: R59.0 Localized enlarged lymph nodes (principal); Z12.31 Encounter for screening mammogram for malignant neoplasm of breast; M51.360 Other intervertebral disc degeneration, lumbar region with discogenic back pain only; K21.9 Gastro-esophageal reflux disease without esophagitis; I10 Essential (primary) hypertension; R73.02 Impaired glucose tolerance (oral); M25.511 Pain in right shoulder

== ENCOUNTER → 2024-10-07 11:11 | Outpatient (BNVA) | payer MEDICARE, MEDICAID, SELFPAY | PROVIDERS: PCP Internal Medicine; Visit Provider Internal Medicine | DX: R59.0 Localized enlarged lymph nodes (principal); M51.360 Other intervertebral disc degeneration, lumbar region with discogenic back pain only; K21.9 Gastro-esophageal reflux disease without esophagitis; I10 Essential (primary) hypertension; R73.02 Impaired glucose tolerance (oral); M25.511 Pain in right shoulder | CPT/HCPCS: 96127; 99212 ==

== ENCOUNTER → 2024-10-12 09:00 | Outpatient (BNV) | payer MEDICARE, MEDICAID, SELFPAY | PROVIDERS: PCP Internal Medicine; Visit Provider Internal Medicine | DX: Z12.31 Encounter for screening mammogram for malignant neoplasm of breast (principal) | CPT/HCPCS: 77063; 77067 ==

== ENCOUNTER 2024-10-12 09:01 | Outpatient (REF) | payer MEDICARE, MEDICAID, SELFPAY ==
--- NOTE | ~2024-10-12 | MM_ITS ---
EXAMINATION: MM SCREENING DIGITAL BREAST TOMOSYNTHESIS, BILATERAL CLINICAL INFORMATION: Screening. Asymptomatic. COMPARISON: Mammography: Comparison is made with available priors TECHNIQUE: Digital breast mammography with tomosynthesis is performed in both the craniocaudal and mediolateral oblique views along with computer-aided detection (CAD). FINDINGS: There are scattered areas of fibroglandular density (ACR BI-RADS breast composition Category b). There are no significant masses, abnormal calcifications, or other abnormalities. MM/MM tomosynthesis screening BI IMPRESSION: No mammographic evidence of malignancy. ASSESSMENT: BI-RADS BI-RADS 1 - Negative RECOMMENDATION: Routine annual mammography screening. 1 year F/U This examination should not preclude the clinical evaluation of a suspicious palpable abnormality. This patient's information was entered into a reminder system with a target due date for their next mammogram. Electronically signed by: April Camilo DO 10/22/2024 11:06 AM ORAL
== END 2024-10-12 09:02 | disposition home or self-care (01) ==
LOC: HO.MAMMO 09:01
PROVIDERS: PCP Internal Medicine; Visit Provider Internal Medicine
DX: Z12.31 Encounter for screening mammogram for malignant neoplasm of breast (principal)
CPT/HCPCS: 77063; 77067

== ENCOUNTER 2025-01-04 17:27 | Emergency (ER) | payer MEDICARE, MEDICAID, SELFPAY ==
[2025-01-04 17:31] VITALS: BP 134/62; PULSE 85; RESP 16; TEMP 36.9; O2SAT 99; BMI 22.5
--- NOTE | 2025-01-04 17:33 | ED_ITS ---
HPI - General Adult General Chief complaint: Ear Problems Stated complaint: bleeding from Left ear Time Seen by Provider: 01/04/25 17:50 Source: patient and family (patient's friend) Mode of arrival: ambulatory Limitations: no limitations History of Present Illness ED Provider: Nasreen Ledezma PA-C HPI narrative: Patient is a 64 year old assigned female at with a history of anemia, ASHLEY, HTN, GERD, and degenerative lumbar disc disease, presenting to the emergency department today with bleeding from her left ear. Patient states that she has been blowing her nose a lot recently due to some sinus issues. Patient states that she was sitting on the couch when she felt something in her ear, stuck her finger into it, removed her finger and saw it was bloody. Patient states that it has continued to bleed over the last 1 hour. Patient denies any dizziness, lightheadedness, abdominal pain, nausea, vomiting, fever, chills, blurry vision, double vision, loss of vision, chest pain, difficulty breathing, shortness of breath, back pain, night sweats, pain with urination, increased urinary frequency, increased urinary urgency, blood in her urine or stool, syncope or a near syncopal episode, recent trauma or falls, bowel incontinence, bladder incontinence, or any other complaints at this time. Patient states that she does not take any aspirin and is not on any anti-coagulation medications. Onset (ago): hour(s) Location: left (ear) Relieving factors: none Exacerbating factors: none Associated symptoms: denies other symptoms Treatments prior to arrival: other (cotton ball in the left ear) Related Data Home Medications ?Medication ?Instructions ?Recorded ?Confirmed bupropion HCl 150 mg 24 hr tablet, 150 mg PO QAM 09/25/20 04/09/24 extended release calcium 500 mg (as 1 tab PO DAILY 09/25/20 04/09/24 carbonate)-vitamin D3 5 mcg (200 unit) tablet (Calcium 500 + D) glucosamine HCl 500 mg tablet 500 mg PO DAILY 09/25/20 04/09/24 lorazepam 1 mg tablet 1 mg PO DAILY PRN Anxiety 09/25/20 04/09/24 multivitamin 1 tab PO DAILY 09/25/20 04/09/24 vit A 7,160 unit-vit C 113 mg-vit 1 tab PO DAILY 09/25/20 04/09/24 E 100 opep-qtoo-nidwfi tablet dextroamphetamine-amphetamine ER 1 cap PO QAM 05/01/24 25 mg 24hr capsule,extend release fluoride (sodium) 1.1 % dental gel dental 05/01/24 (DentaGel) fluoxetine 20 mg capsule 40 mg PO QAM 10/07/24 Previous Rx's ?Medication ?Instructions ?Recorded naloxone 4 mg/actuation nasal 4 mg intranasal Q3M PRN opioid 08/06/21 spray (Narcan) overdose #2 ea docusate sodium 100 mg capsule 100 mg PO BID #180 caps 06/02/23 blood-glucose meter (FreeStyle #1 ea 07/13/23 Lite Meter kit) blood sugar diagnostic (FreeStyle #100 ea 02/22/24 Lite Strips) cyclobenzaprine 10 mg tablet 10 mg PO TID #90 tabs 09/06/24 omeprazole 40 mg capsule,delayed 40 mg PO QAM #90 caps 09/06/24 release fluticasone propionate 50 2 spray intranasal DAILY #3 ea 10/26/24 mcg/actuation nasal spray,suspension (Flonase Allergy Relief) lisinopril 5 mg tablet 5 mg PO DAILY #90 tabs 11/19/24 ropinirole 1 mg tablet 1 mg PO DAILY #90 tabs 11/19/24 oxycodone-acetaminophen 5 mg-325 1 tab PO DAILY PRN pain #30 tabs 12/30/24 mg tablet ofloxacin 0.3 % ear drops 10 drp otic (ears) DAILY 7 days 01/04/25 #10 mL Allergies Allergy/AdvReac Type Severity Reaction Status Date / Time No Known Allergies Allergy Verified 01/04/25 17:36 Review of Systems 2 Constitutional: Constitutional: Reports no additional constitutional complaints, Denies chills, Denies fever(s) and Denies night sweats Eyes: Eyes: Reports no additional eye complaints, Denies blurry vision, Denies change in vision, Denies diplopia, Denies eye discharge, Denies loss of vision and Denies eye pain ENT: Denies dizziness Comments: bleeding from left ear Cardiovascular: Cardiovascular: Reports no additional cardiovascular complaints, Denies chest pain, Denies lightheadedness, Denies Loss of Consciousness and Denies dyspnea Respiratory: Respiratory: Reports no additional respiratory complaints and Denies dyspnea Gastrointestinal: Gastrointestinal: Reports no additional gastrointestinal complaints, Denies abdominal pain, Denies melena, Denies hematochezia, Denies change in bowel habits and Denies change in stool character Genitourinary: Genitourinary: Denies hematuria, Denies urinary frequency, Denies dysuria, Denies urinary incontinence, Denies urinary hesitancy and Denies urinary urgency Musculoskeletal: Musculoskeletal: Reports no additional musculoskeletal complaints, Denies numbness and Denies tingling Neurologic: Denies dizziness, Denies loss of vision, Denies numbness and Denies tingling Psychiatric: Psychiatric: Reports no additional psychiatric complaints Endocrine: Endocrine: Reports no additional endocrine complaints Hematologic/Lymphatic: Hematologic/Lymphatic: Reports no additional hematologic/lymphatic complaints Allergic/Immunologic: Allergic/Immunologic: Reports no additional allergic/immunologic complaints PMFSH Past Medical History Attestation statement: The following information was validated with the patient. Source: old records reviewed, nursing notes reviewed and other (patient's friend provided additional history and confirmed the history provided by the patient.) Medical History Impaired glucose tolerance History of gastrectomy Hypertension Hypertriglyceridemia Knee osteoarthritis Restless leg syndrome GERD (gastroesophageal reflux disease) Degenerative disc disease, lumbar Surgical History Vaginal hernia Status post panniculectomy Hx of laparoscopic gastric banding H/O LEEP History of lipoma History of removal of cyst History of section Family History Family History Father Heart disease Lung cancer CVD (cardiovascular disease) Mother Hypertension Stroke Sister Breast cancer, Onset Age: 53 Maternal Grandmother Breast cancer Social History Social History Housing: Apartment Alcohol intake: current Alcohol intake frequency: does not drink Patient Tobacco Use Status: Former Tobacco user Tobacco use type: Cigarette e-Cigarette/Vaping Use: Never Used Second Hand Smoke Exposure: No Substance Use Type: Marijuana Advance Directives: No Advance Directives Information Provided: No service: No Current occupational status: unemployed Cognitive needs: No Hearing needs: No Vision needs: Yes Physical Exam ED Vital Signs: Vital Signs - 24 hr 01/04/25 17:31 Temperature 98.4 F Pulse Rate 85 Respiratory Rate 16 Blood Pressure 134/62 Pulse Oximetry 99 Oxygen Delivery Method Room Air BMI result Body Mass Index 22.5 Const General: cooperative, no acute distress, alert and awake Nutritional Appearance: well nourished Orientation/consciousness: patient oriented x3 Limitations: no limitations HENMT Other: left ear canal and TM Head: Yes normal to inspection and Yes atraumatic Ears: hearing grossly normal bilaterally General nose exam: Normal external nose present, no nasal discharge noted and no epistaxis Face and sinus: Yes normal facial exam, No abrasion and No laceration Mouth: Normal oral and palatal mucosa present, no drooling and no muffled voice Eyes General: appearance normal, both eyes and all related structures Periorbital: periorbital findings normal Eyelids: Yes eyelids normal Conjunctivae: conjunctivae normal Pupils: Equal, round and reactive pupils present EOM: EOMs intact bilaterally Neck Neck: Yes normal visual inspection, Yes full ROM and Yes no lymphadenopathy Chest Chest palpation & inspection: normal inspection of the chest Resp Effort & Inspection: normal respiratory effort and able to speak in complete sentences GI Inspection: Yes normal to inspection Neuro General: patient oriented x3, moves all extremities and CN's II-XI intact bilaterally Cranial nerves: Yes Equal, round and reactive pupils present Cognition (Neuro): normal cognition Extrem General: Yes normal to inspection, Yes full ROM and Yes capillary refill normal Psych Appearance: grossly normal Mental Status: mental status grossly normal Affect: normal affect Attitude: cooperative Thought process: Normal thought process present Thought content: Normal thought content present Insight: Good insight present (Psych) Course Course Course Narrative: RME performed by Nasreen Ledezma PA-C. Patient is a 64 year old assigned female at presenting to the emergency department with left ear bleeding. Patient states an hour and a half ago she felt her left ear begin to feel funny and stuck her finger in it and when she pulled it out, it was bloody. Detailed physical exam and review of systems are deferred to the veterinary technician instructor. Patient placed back in the waiting room pending room availability and results. Medical Decision Making Medical Decision Making MDM Narrative: Patient is a 64 year old assigned female at with a history of anemia, ASHLEY, HTN, GERD, and degenerative lumbar disc disease, presenting to the emergency department today with bleeding from her left ear. Patient's physical exam was as noted in the physical exam portion of this note. Patient's left ear canal had rylie red blood in it with some clots present that were easily cleared with a cotton swab and gauze. I was able to visualize the superior portion of the TM however, the inferior portion was blocked by the area of bleeding tissue. I believe that the bleeding tissue is an avulsion / abrasion of the canal but cannot definitively say that TM is not micro-perforated. Patient's blood work was unremarkable. I called and spoke with the patient's ENT office's covering provider. She recommended spaying afrin into the ear, covering with an anti biotic drop, encouraging the use of cotton / gauze in the canal, and having the patient follow up on an outpatient basis. I explained my physical exam findings as well as all test results to the patient and the patient's friend. I answered all questions asked by the patient and the patient's friend. Patient had afrin sprayed into her left ear and was given gauze and shown appropriate technique to fold the gauze into the ear canal. I stressed the importance of the patient taking her medication as directed (either prescribed or as the over the counter packaging recommends). I stressed the importance of the patient following up with her primary care provider and ENT. I stressed the importance of the patient returning to the emergency department immediately if her symptoms were to worsen or if she were to develop any dizziness, shortness of breath, difficulty breathing, chest pain, blurry vision, loss of vision, nausea, vomiting, abdominal pain, fever, chills, back pain, or any other complaints. Patient and the patient's friend verbalized agreement and understanding with this treatment plan and discharge. Differential Diagnosis Differential Diagnoses: The differential diagnosis associated with the presentation includes Left otitis media Perforated left TM Left ear canal abrasion Left ear canal laceration Admission/Observation Consideration of admission/observation: Escalation of care including admission/observation considered Patient would have been admitted to the hospital had her work up had any findings where hospital admission was appropriate and her clinical presentation warranted hospital admission. Consult Healthcare Provider Management of the patient was discussed with: Pharmacology Professor (spoke with the patient's covering ENT as noted in the MDM Rationale portion of this note.) Lab Data [facility] Lab Attestation statement: I reviewed the patient's lab results. My interpretation of these results are in the MDM Rationale portion of this note. 01/04/25 17:40 01/04/25 17:40 Labs: Lab Results 01/04/25 01/04/25 Range/Units 17:40 18:50 WBC 6.2 (4.8-10.8) X10*3/uL RBC 4.17 L (4.20-5.50) X10*6/uL Hgb 12.8 (12.0-16.0) g/dl Hct 37.1 (37.0-47.0) % MCV 89.0 (80.0-98.0) fL MCH 30.7 (27.0-33.0) pg MCHC 34.5 (31.0-35.0) g/dl RDW 13.5 (11.0-16.0) % Plt Count 228 (160-400) X10*3/uL MPV 9.2 L (9.4-12.3) fL Immature Gran % (Auto) 0.3 (0.0-0.4) % Neut % (Auto) 55.9 (45-73) % Lymph % (Auto) 34.1 (20-40) % Latimer % (Auto) 7.1 (2-11) % Eos % (Auto) 1.8 (0-4) % Baso % (Auto) 0.8 (0-2) % Lymph # (Auto) 2.1 (1.2-4.9) X10*3/uL Latimer # (Auto) 0.4 (0.1-1.2) X10*3/uL Eos # (Auto) 0.1 (0.0-0.4) X10*3/uL Baso # (Auto) 0.1 (0.0-0.2) X10*3/uL Abs Immat Gran (auto) 0.02 (0.00-0.03) X10*3/uL Absolute Neuts (auto) 3.5 (2.0-8.3) x10*3/uL Absolute Nucleated RBC 0.000 (0.0-0.012) X10*3/uL Nucleated RBC % (auto) 0.0 (0.0-0.2) /100WBC PT 9.9 L (10.9-12.4) SEC INR 0.9 (0.9-1.1) APTT 29.9 (26.0-36.8) SEC Sodium 142 (135-145) mmol/L Potassium 3.9 (3.3-5.1) mmol/L Chloride 104 (96-108) mmol/L Carbon Dioxide 30 H (22-29) mmol/L Anion Gap 12 (12-20) BUN 10 (9-16) mg/dL Creatinine 0.83 (0.5-1.4) mg/dL Estim Creat Clear Calc 62.4 Estimated GFR > 60 Random Glucose 65 (60-115) mg/dL Calcium 9.4 (8.4-10.2) mg/dL Magnesium 2.0 (1.6-2.6) mg/dL Total Bilirubin 0.2 (0.0-1.0) mg/dL AST 28 (5-31) U/L ALT 33 H (0-31) U/L Alkaline Phosphatase 80 (39-117) U/L Total Protein 6.7 (6.5-8.0) g/dL Albumin 4.1 (3.5-5.0) g/dL Influenza Type A (PCR) NEGATIVE (Negative) Influenza Type B (PCR) NEGATIVE (Negative) RSV RNA Qual (PCR) NEGATIVE (Negative) SARS-CoV-2 RNA (RT-PCR) NEGATIVE (Negative) Independent Historian Clinical information obtained from an independent historian. History obtained from or confirmed by: Friend (patient's friend provided additional history and confirmed the history provided by the patient.) Prescription Management I considered prescription management with: Antibiotic (patient prescribed an antibiotic drop) Discharge Plan Discharge Clinical Impression: Otitis media, serous, TM rupture, Abrasion of ear Patient Disposition: Home, Self-Care Instructions: Ruptured Eardrum (ED), Ear Abrasion (ED) Additional Instructions: Follow up with your primary care provider and your ENT. Use your drops as prescribed and leave gauze in the canal. Return to the emergency department immediately if your symptoms worsen or if you develop any dizziness, shortness of breath, difficulty breathing, chest pain, blurry vision, loss of vision, nausea, vomiting, abdominal pain, fever, chills, back pain, or any other complaints. Prescriptions: New ofloxacin 0.3 % drops 10 drp otic (ears) DAILY 7 Days Qty: 10 0RF No Action Narcan 4 mg/actuation spray,non-aerosol 4 mg intranasal Q3M PRN (Reason: opioid overdose) Qty: 2 0RF Rx Instructions: spray 1 dose into ONE nostril; alternate nostrils w each dose until help arrives docusate sodium 100 mg capsule 100 mg PO BID Qty: 180 3RF (DME) blood-glucose meter [FreeStyle Lite Meter] Kit See Rx Instructions .ROUTE .MEDSUPPLY Qty: 1 0RF Rx Instructions: As directed (DME) FreeStyle Lite Strips Strip See Rx Instructions .ROUTE .MEDSUPPLY Qty: 100 3RF Rx Instructions: As directed check the BS QD omeprazole 40 mg capsule,delayed release(DR/EC) 40 mg PO QAM Qty: 90 2RF cyclobenzaprine 10 mg tablet 10 mg PO TID Qty: 90 2RF fluticasone propionate [Flonase Allergy Relief] 50 mcg/actuation spray,suspension 2 spray intranasal DAILY Qty: 3 3RF Rx Instructions: administer into each nostril ropinirole 1 mg tablet 1 mg PO DAILY Qty: 90 2RF lisinopril 5 mg tablet 5 mg PO DAILY Qty: 90 3RF oxycodone-acetaminophen 5-325 mg tablet 1 tab PO DAILY PRN (Reason: pain) Qty: 30 0RF glucosamine HCl 500 mg tablet 500 mg PO DAILY Rx Instructions: administer with meals vit A-vit C-vit A-aidl-vpvxae [id number] cvdi-lg-dcad tablet 1 tab PO DAILY multivitamin Tablet 1 tab PO DAILY calcium carbonate-vitamin D3 [Calcium 500 + D] 500 mg(1,250mg) -200 unit tablet 1 tab PO DAILY lorazepam 1 mg tablet 1 mg PO DAILY PRN (Reason: Anxiety) bupropion HCl 150 mg tablet extended release 24 hr 150 mg PO QAM dextroamphetamine-amphetamine 25 mg capsule,extended release 24hr 1 cap PO QAM fluoride (sodium) [DentaGel] 1.1 % gel dental fluoxetine 20 mg capsule 40 mg PO QAM Referrals: [facility] [Provider Group] Shorty,Maximo Streeter MD [Primary Care Provider] - Print Language: Frisian
[2025-01-04 17:45] LABS: MANUAL DIFF FLAG NO
[2025-01-04 17:48] LABS: Basophils Absolute Auto 0.1 X10*3/uL (0.0-0.2); Basophils Percent Auto 0.8 % (0-2); Eosinophils Absolute Auto 0.1 X10*3/uL (0.0-0.4); Eosinophils Percent Auto 1.8 % (0-4); Hematocrit 37.1 % (37.0-47.0); Hemoglobin 12.8 g/dl (12.0-16.0); Imm Gran Abs Auto 0.02 X10*3/uL (0.00-0.03); Imm Gran Pct Auto 0.3 % (0.0-0.4); Lymphocytes Absolute Auto 2.1 X10*3/uL (1.2-4.9); Lymphocytes Percent Auto 34.1 % (20-40); Mean Corpuscular HGB Conc 34.5 g/dl (31.0-35.0); Mean Corpuscular Hemoglobin 30.7 pg (27.0-33.0); Mean Platelet Volume 9.2 fL (9.4-12.3); Monocytes Absolute Auto 0.4 X10*3/uL (0.1-1.2); Monocytes Percent Auto 7.1 % (2-11); Neutrophils Absolute Auto 3.5 x10*3/uL (2.0-8.3); Neutrophils Percent Auto 55.9 % (45-73); Platelet Count 228 X10*3/uL (160-400); Red Blood Count 4.17 X10*6/uL (4.20-5.50); Red Cell Distribution Width 13.5 % (11.0-16.0); White Blood Count 6.2 X10*3/uL (4.8-10.8)
[2025-01-04 18:02] LABS: INTERNATIONAL NORM RATIO 0.9 (0.9-1.1); Prothrombin Time 9.9 SEC (10.9-12.4)
[2025-01-04 18:05] LABS: Alanine Aminotransferase 33 U/L (0-31); Albumin Level 4.1 g/dL (3.5-5.0); Alkaline Phosphatase 80 U/L (39-117); Anion Gap 12 (12-20); Aspartate Amino Transferase 28 U/L (5-31); Bilirubin Total 0.2 mg/dL (0.0-1.0); Blood Urea Nitrogen 10 mg/dL (9-16); Calcium 9.4 mg/dL (8.4-10.2); Carbon Dioxide 30 mmol/L (22-29); Chloride 104 mmol/L (96-108); Creatinine Clr Calc Pharmacy 62.4; Estimated Glomerular Filt Rate > 60; Glucose Random 65 mg/dL (60-115); Partial Thromboplastin Time 29.9 SEC (26.0-36.8); Potassium 3.9 mmol/L (3.3-5.1); Sodium 142 mmol/L (135-145); Total Protein 6.7 g/dL (6.5-8.0)
[2025-01-04 19:40] LABS: Influenza A PCR NEGATIVE (Negative); Influenza B PCR NEGATIVE (Negative); Resp Syncy Virus RNA Qual PCR NEGATIVE (Negative); SARS COV2 PCR INHOUSE NEGATIVE (Negative)
[2025-01-04] MEDS: Oxymetazoline HCl 0.05 % Nasal 15 ML SPRAY 2 SPRAY NOSTRIL-B (20:34)
== END 2025-01-04 20:37 | disposition home or self-care (01) ==
PROVIDERS: Physician Assistant Medical; Emergency Provider Emergency Medicine; PCP Internal Medicine
DX: H65.92 Unspecified nonsuppurative otitis media, left ear (principal); H72.92 Unspecified perforation of tympanic membrane, left ear; S00.412A Abrasion of left ear, initial encounter; X58.XXXA Exposure to other specified factors, initial encounter; H92.22 Otorrhagia, left ear; R79.1 Abnormal coagulation profile; Z03.818 Encounter for observation for suspected exposure to other biological agents ruled out; I10 Essential (primary) hypertension; K21.9 Gastro-esophageal reflux disease without esophagitis; Y93.9 Activity, unspecified; Y92.9 Unspecified place or not applicable; Y99.9 Unspecified external cause status; Z87.891 Personal history of nicotine dependence; F12.90 Cannabis use, unspecified, uncomplicated
CPT/HCPCS: 0241U; 36415; 80053; 83735; 85025; 85610; 85730; 99281; 99283

== ENCOUNTER 2025-01-23 15:47 | Outpatient (AMB) | payer MEDICARE, MEDICAID, SELFPAY ==
[2025-01-23 16:11] VITALS: BP 136/86; PULSE 93; O2SAT 96; BMI 22.1
--- NOTE | 2025-01-23 16:11 | A.OFFPC_ITS ---
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 Accompanied by: Self / Same As Patient Allergies No Known Allergies Allergy (Verified 01/23/25 16:12) Tobacco use date assessed: 01/23/25 Fall risk assessment: 2 + Falls in past year Last assessed Fall Risk: 01/23/25 Dental Screening Dental Screen Date: 01/23/25 Did you have a dental visit in the last 12 months?: Yes Did you have a dental problem in the last 6 months where you did not have access to dental care?: No Was dental information given to patient?: Patient has dentist [facility] Medical History Impaired glucose tolerance History of gastrectomy Hypertension Hypertriglyceridemia Knee osteoarthritis Restless leg syndrome GERD (gastroesophageal reflux disease) Degenerative disc disease, lumbar Surgical History Vaginal hernia Status post panniculectomy Hx of laparoscopic gastric banding H/O LEEP History of lipoma History of removal of cyst History of section Family History Father Heart disease Lung cancer CVD (cardiovascular disease) Mother Hypertension Stroke Sister Breast cancer, Onset Age: 53 Maternal Grandmother Breast cancer Social History Housing: Apartment Alcohol intake: current Alcohol intake frequency: does not drink Patient Tobacco Use Status: Former Tobacco user Tobacco use type: Cigarette e-Cigarette/Vaping Use: Never Used Second Hand Smoke Exposure: No Substance Use Type: Marijuana service: No Current occupational status: unemployed Cognitive needs: No Hearing needs: No Vision needs: Yes Female Reproductive History Menstrual Age of Menarche: 11 Questionnaire PHQ-9 Over the last 2 weeks, how often have you been bothered by any of the following problems? 1. Little interest or pleasure in doing things: more than half the days 2. Feeling down, depressed, or hopeless: more than half the days 3. Trouble falling or staying asleep, or sleeping too much: not at all 4. Feeling tired or having little energy: more than half the days 5. Poor appetite or overeating: more than half the days 6. Feeling bad about yourself - or that you are a failure or have let yourself or your family down: more than half the days 7. Trouble concentrating on things, such as reading the newspaper or watching television: nearly every day 8. Moving or speaking so slowly that other people could have noticed. Or the opposite - being so fidgety or restless that you have been moving around a lot more than usual: several days 9. Thoughts that you would be better off or of hurting yourself in some way: not at all Total score: 14 Depression Screening Interpretation: Positive Depression Screening Done: Yes Source: Developed by Drs. Twin Sierra, Sandra العراقي, John Najera and colleagues, with an educational elana from [employer]. Thrive Questionnaire Date Thrive assessed: 01/23/25 I am a: Patient What is your living situation today?: I have a steady place to live Within the past 12 months, did the food you bought not last and you didn't have the money to get more?: Never true Within the past 12 months, did you worry whether your food would run out before you got money to buy more?: Never true Do you have trouble paying for medicines?: No Do you have trouble getting transportation to medical appointments?: No Do you have trouble paying your heating and electricity bill?: No Do you have trouble taking care of your child, family member or friend?: No Do you have trouble with day-to-day activities such as bathing, preparing meals, shopping, managing finances, etc.?: No Are you currently unemployed and looking for a job?: I choose not to answer this question Are you interested in more education?: No Please select the resources that you would like help with: None Currently or been in a relationship where the following occur: No concerns reported THRIVE Score: 0 AUDIT C Alcohol Use Questionnaire (AUDIT-C) 1. How often do you have a drink containing alcohol?: Monthly or less 2. How many drinks containing alcohol do you have on a typical day when you are drinking?: 1 or 2 3. How often do you have six or more drinks on one occasion?: Never Total Score: 1 ASHLEY-7 AMB Questionnaire ASHLEY-7 Date ASHLEY - 7 assessed: 01/23/25 Feeling nervous, anxious, or on edge: 2 = More than half the days Not being able to stop or control worryin = More than half the days Worrying too much about different things: 2 = More than half the days Trouble relaxin = Not at all Being so restless that it is hard to sit still: 2 = More than half the days Becoming easily annoyed or irritable: 3 = Nearly every day Feeling afraid as if something awful might happen: 2 = More than half the days Total ASHLEY-7 score (0-4 normal; 5-9 mild; 10-14 moderate; 15-21 severe): 13 Source: Developed by Drs. Twin Sierra, Sandra العراقي, John Najera and colleagues, with an educational elana from [employer]. ASHLEY-7 Assessment Billing ASHLEY-7 Assessment Tool: ASHLEY-7 Assessment 27151 Physical exam (Primary Care) Vital Signs: Last Vital Signs Pulse 93 01/23/25 16:11 BP 136/86 01/23/25 16:11 Pulse Ox 96 01/23/25 16:11 Oxygen Delivery Method Room Air 01/23/25 16:11 BMI result Body Mass Index 22.1 Tobacco/Smoking Status: Tobacco use Status Tobacco use date assessed 01/23/25 01/23/25 16:15 Patient Tobacco Use Status Former Tobacco user 01/23/25 16:15 Tobacco use type Cigarette 01/23/25 16:15 e-Cigarette/Vaping Use Never Used 01/23/25 16:15 PHQ-9: PHQ-9 Score PHQ-9: Total score 14 01/23/25 16:47 Depression Screening Interpretation: Positive Thrive Assessment: Date of Thrive Assessment Date Thrive assessed 01/23/25 01/23/25 16:15 Currently or been in a relationship where the following occur: No concerns reported Const General: alert; No acute distress HENMT Other: TM intact Eyes Conjunctivae: conjunctivae normal Resp Auscultation: clear to auscultation bilaterally Cardio Rate: regular rate Rhythm: regular rhythm GI Inspection: Yes normal to inspection Extrem General: Yes normal to inspection and No edema Coding Level of Care Code Est Pt Level 4 (87383) Complex EM visit Add On G2211 Diagnoses Otitis media H66.90 Essential hypertension I10 Hypertension type: essential hypertension Gastroesophageal reflux disease without esophagitis K21.9 Esophagitis presence: without esophagitis Degeneration of intervertebral disc of lumbar region with discogenic back pain M51.360 Disc-related pain type: discogenic back pain only Hypertriglyceridemia E78.1 Impaired glucose tolerance R73.02 Generalized anxiety disorder F41.1 Additional Codes ASHLEY-7 Assessment Billing - ASHLEY-7 Assessment Tool: ASHLEY-7 Assessment 94737 ([id number]) Assessment & Plan Assessment & Plan (1) Otitis media: Code(s): H66.90 - Otitis media, unspecified, unspecified ear Category: Medical Plan: Patient was referred to ear nose and throat but was seen and treated in the emergency room (2) Hypertension: Code(s): I10 - Essential (primary) hypertension Category: Medical Qualifiers: Hypertension type: essential hypertension Qualified Code(s): I10 - Essential (primary) hypertension Plan: Continue with blood pressure medication. Decrease salt intake and exercise on lisinopril 5 mg once a day (3) GERD (gastroesophageal reflux disease): Code(s): K21.9 - Gastro-esophageal reflux disease without esophagitis Category: Medical Qualifiers: Esophagitis presence: without esophagitis Qualified Code(s): K21.9 - Gastro-esophageal reflux disease without esophagitis Plan: Avoid the foods that causes that usually spicy foods, tomato products, juices, coffee, soda and foods that your sensitive to. After eating do not lie down, allow 3-4 hours before in lie down. And keep the head of bed above 30 degrees to avoid the acid from going up. (4) Degenerative disc disease, lumbar: Code(s): M51.36 - Other intervertebral disc degeneration, lumbar region Category: Medical Qualifiers: Disc-related pain type: discogenic back pain only Qualified Code(s): M51.360 - Other intervertebral disc degeneration, lumbar region with discogenic back pain only Plan: Narcotic pain meds: Is being prescribed with the understanding that these medications are potentially addictive and should be used only when absolutely necessary and must always be secured. Any remaining pills should be safely disposed off appropriately. Patient is advised that narcotics can impaired judgment and one should not drive or operate heavy machinery while taking these medications. Never share these medications with anybody and do not leave them unattended. They will not be replaced under any circumstances. (5) Hypertriglyceridemia: Code(s): E78.1 - Pure hyperglyceridemia Category: Medical Plan: Avoid fried foods, chicken skin, eggs, butter margarine, pastries and meat. Be it pork or beef they have a lot of cholesterol LDL goal of less than 130 and triglyceride of less than 150 (6) Impaired glucose tolerance: Code(s): R73.02 - Impaired glucose tolerance (oral) Category: Medical Plan: Decrease the amount of carbohydrate intake, pasta, bread, rice and potatoes are all sugar and that is aside from all the sweet stuff, remember that fruits are good but they are Sweet also. (7) Generalized anxiety disorder: Comment: [facility] Code(s): F41.1 - Generalized anxiety disorder Category: Medical Plan: Continue with counseling and therapy Plan History of Present Illness The patient is a 64-year-old female presenting with a left ear problem. There is a history of acute otitis media with rupture, treated with ofloxacin drops. Currently, she reports no pain and indicated that bleeding occurred, likely due to external irritation. Her ear examination revealed no severe concerns. The patient's long-standing management of lumbar degenerative disc disease includes narcotic pain relievers. She manages chronic conditions including GERD, hypercholesterolemia (last normal test in April 2023), hypertension (treated with lisinopril), impaired glucose tolerance, and generalized anxiety disorder, with appropriate therapeutic regimens in place. She expressed some administrative bureaucratic dissatisfaction concerning ENT consultations. Her preventive health maintenance includes normal recent mammogram and Cologuard test results. Health Maintenance - Mammogram conducted in September 2024 - Cologuard test performed in February 2023 - Cholesterol management with a goal of LDL under 130 and triglycerides under 150 - Routine blood work showed normal hematological parameters, renal function, blood glucose, and liver function - Lisinopril prescribed for hypertension management Social History - Engagement with [facility] for anxiety management - Discussion about appropriate ear care to avoid complications like bruising and bleeding Review of Systems - Ears: Reports past bleeding and discharge, denies current pain - Hearing: Reports no issues - Cardiovascular: Reports stable blood pressure control - Metabolic/Endocrine: Denies issues beyond managed impaired glucose tolerance and hypercholesterolemia Physical Exam - Ears- Visual examination indicates no severe concerns; eardrum appears healthy - Ears- Observed peripheral bruising and bleeding Results - Labs: Normal blood count, electrolytes, renal, and liver function from December 2024 - Tests: Normal cholesterol test in April 2023 Plan Essential hypertension will remain under surveillance with lisinopril therapy ensuring adequate blood pressure control. Continued management adherence for all chronic conditions including GERD, hypercholesterolemia, and impaired glucose tolerance. No immediate ENT referral as no further significant issues were noted with the ear. Counseling emphasizing appropriate ear hygiene to prevent further complications. Cholesterol management remains consistent with the current therapeutic plan. Anxiety management through [facility] continues. Patient was informed and verbally consented to the use of an ambient scribe for clinic note documentation during this visit. Discussion Notes I discussed with the patient the current state of her ear health, indicating no alarming signs necessitating immediate referral to an ENT specialist. We reviewed the use of prescribed medications such as ofloxacin and Afrin successfully aiding the management of her symptoms previously. The importance of preventing ear injury by refraining from using Q-tips was emphasized. Reviewed medication adherence for maintaining control of her chronic conditions; particularly, the successful management of her hypertension with lisinopril and maintenance of cholesterol levels. We addressed her inquiry about preauthorization procedures with her Medicare Part D for narcotic prescriptions. Reinforced her commitment to regular follow-ups and adherence to her prescribed medication and counseling regimes. Patient Instructions - Continue current medications as prescribed, including lisinopril for blood pressure - Avoid using Q-tips or inserting objects into the ears - Follow up with regular blood pressure and cholesterol monitoring - Maintain engagement with [facility] for anxiety management - Contact if any new or worsening symptoms occur Medications: Refilled oxycodone-acetaminophen 5-325 mg 1 tab PO DAILY PRN 30 tabs 0RF pain R73.02 - Impaired glucose tolerance (oral)
== END 2025-01-23 16:53 | disposition home or self-care (01) ==
PROVIDERS: PCP Internal Medicine; Visit Provider Internal Medicine
DX: H66.90 Otitis media, unspecified, unspecified ear (principal); I10 Essential (primary) hypertension; K21.9 Gastro-esophageal reflux disease without esophagitis; M51.360 Other intervertebral disc degeneration, lumbar region with discogenic back pain only; E78.1 Pure hyperglyceridemia; R73.02 Impaired glucose tolerance (oral); F41.1 Generalized anxiety disorder

== ENCOUNTER → 2025-01-23 15:47 | Outpatient (BNVA) | payer MEDICARE, MEDICAID, SELFPAY | PROVIDERS: PCP Internal Medicine; Visit Provider Internal Medicine | DX: H66.90 Otitis media, unspecified, unspecified ear (principal); I10 Essential (primary) hypertension; K21.9 Gastro-esophageal reflux disease without esophagitis; M51.360 Other intervertebral disc degeneration, lumbar region with discogenic back pain only; E78.1 Pure hyperglyceridemia; R73.02 Impaired glucose tolerance (oral); F41.1 Generalized anxiety disorder | CPT/HCPCS: 96127; 99212 ==

== ENCOUNTER 2025-08-18 08:08 | Outpatient (REF) | payer MEDICARE, MEDICAID, SELFPAY ==
[2025-08-18 08:37] LABS: MANUAL DIFF FLAG NO
--- OUTSIDE RECORDS SUMMARY | 2025-08-18 09:01 | XMS_ITS ---
Author Name [facility] Organization Unknown Care Team Organization Name Specialty Phone Email Start Date End marychuy Nichols [employer] [facility] 10/04/2023 10/04/2023
[2025-08-18 09:15] LABS: Hematocrit 40.7 % (37.0-47.0); Hemoglobin 13.4 g/dl (12.0-16.0); Imm Gran Abs Auto 0.02 X10*3/uL (0.00-0.03); Imm Gran Pct Auto 0.3 % (0.0-0.4); Lymphocytes Absolute Auto 1.6 X10*3/uL (1.2-4.9); Mean Corpuscular HGB Conc 32.9 g/dl (31.0-35.0); Mean Corpuscular Hemoglobin 29.6 pg (27.0-33.0); Mean Corpuscular Volume 90.0 fL (80.0-98.0); NRBC Abs Auto 0.000 X10*3/uL (0.0-0.012); NRBC Pct Auto 0.0 /100WBC (0.0-0.2); Platelet Count 287 X10*3/uL (160-400); Red Blood Count 4.52 X10*6/uL (4.20-5.50); White Blood Count 6.7 X10*3/uL (4.8-10.8)
[2025-08-18 09:27] LABS: Hemoglobin A1C 139.7989 umol/L; Total Hemoglobin (HGBA1C) 3546.7830 umol/L
[2025-08-18 09:30] LABS: Alanine Aminotransferase 20 U/L (0-31); Albumin Level 4.6 g/dL (3.5-5.0); Alkaline Phosphatase 97 U/L (39-117); Anion Gap 10 (12-20); Aspartate Amino Transferase 24 U/L (5-31); Blood Urea Nitrogen 7 mg/dL (9-16); Calcium 10.1 mg/dL (8.4-10.2); Carbon Dioxide 30 mmol/L (22-29); Chloride 103 mmol/L (96-108); Cholesterol 205 mg/dL (<200); Estimated Glomerular Filt Rate > 60; HDL Cholesterol 83 mg/dL (>40); Potassium 4.1 mmol/L (3.3-5.1); Sodium 139 mmol/L (135-145); Total Protein 7.0 g/dL (6.5-8.0); Triglycerides 125 mg/dL (<150)
[2025-08-18 09:36] LABS: Appearance Urine Clear; Glucose Urine UA Negative (Negative); PH 7.5 (5.0-9.0); Specific Gravity - Urine 1.015 (1.005-1.025)
[2025-08-18 09:47] LABS: Free T4 (Free Thyroxine) 1.02 ng/dL (0.71-1.85); Thyroid Stimulating Hormone 3.20 uIU/mL (0.32-4.0)
[2025-08-18 10:05] LABS: Folate > 20.0 ng/mL (> or = 4.0); Vitamin B12 914 pg/mL (200-900)
== END 2025-08-18 08:09 | disposition home or self-care (01) ==
LOC: HO.LAB 08:08
PROVIDERS: PCP Internal Medicine; Visit Provider Internal Medicine
DX: K21.9 Gastro-esophageal reflux disease without esophagitis (principal); R73.02 Impaired glucose tolerance (oral); E78.00 Pure hypercholesterolemia, unspecified; R30.0 Dysuria
CPT/HCPCS: 36415; 80053; 80061; 81001; 81003; 82306; 82607; 82746; 83036; 84439; 84443; 85025

== ENCOUNTER 2025-08-19 15:18 | Outpatient (AMB) | payer MEDICARE, MEDICAID, SELFPAY ==
--- NOTE | 2025-08-19 15:30 | MHC.PC.OV ---
Vital Signs 08/19/25 15:31 Height 5 ft 6 in Weight 138 lb 6 oz BMI 22.3 BP 120/66 Blood Pressure Location Lt brachial Position Sitting Pulse 87 Pulse Source Pulse Oximeter Temp 97.5 F Temp Source Temporal Artery Scan Pulse Oximetry (%) 97 Oxygen Delivery Method Room Air Intake Visit Reasons: LBP Intake Note: Patient is here to follow up on LBP. Chief Design Engineer Required: No Brush Holder Assembler: Not Required per policy Accompanied by: Self / Same As Patient Allergies No Known Allergies Allergy (Verified 08/19/25 15:31) Tobacco use date assessed: 08/19/25 Fall risk assessment: No Falls in past year Last assessed Fall Risk: 08/19/25 Dental Screening Dental Screen Date: 01/23/25 [facility] Medical History Impaired glucose tolerance History of gastrectomy Hypertension Hypertriglyceridemia Knee osteoarthritis Restless leg syndrome GERD (gastroesophageal reflux disease) Degenerative disc disease, lumbar Surgical History Vaginal hernia Status post panniculectomy Hx of laparoscopic gastric banding H/O LEEP History of lipoma History of removal of cyst History of section Family History Father Heart disease Lung cancer CVD (cardiovascular disease) Mother Hypertension Stroke Sister Breast cancer, Onset Age: 53 Maternal Grandmother Breast cancer Social History (Updated 08/19/25 @ 15:37 by JOSEFINA Mobley) Housing: Apartment Alcohol intake: current Alcohol intake frequency: holidays/special occasions only Alcohol type: beer Patient Tobacco Use Status: Former Tobacco user Tobacco use type: Cigarette e-Cigarette/Vaping Use: Never Used Second Hand Smoke Exposure: Yes Substance Use Type: Marijuana service: No Current occupational status: unemployed Cognitive needs: No Hearing needs: No Vision needs: Yes Female Reproductive History Menstrual Age of Menarche: 11 Questionnaire PHQ-9 Over the last 2 weeks, how often have you been bothered by any of the following problems? 1. Little interest or pleasure in doing things: not at all 2. Feeling down, depressed, or hopeless: not at all 3. Trouble falling or staying asleep, or sleeping too much: not at all 4. Feeling tired or having little energy: not at all 5. Poor appetite or overeating: not at all 6. Feeling bad about yourself - or that you are a failure or have let yourself or your family down: not at all 7. Trouble concentrating on things, such as reading the newspaper or watching television: not at all 8. Moving or speaking so slowly that other people could have noticed. Or the opposite - being so fidgety or restless that you have been moving around a lot more than usual: not at all 9. Thoughts that you would be better off or of hurting yourself in some way: not at all Total score: 0 Depression Screening Interpretation: Negative Depression Screening Done: Yes Source: Developed by Drs. Twin Sierra, Sandra العراقي, John Najera and colleagues, with an educational elana from [employer]. Thrive Questionnaire Date Thrive assessed: 08/12/25 I am a: Patient What is your living situation today?: I have a steady place to live Within the past 12 months, did the food you bought not last and you didn't have the money to get more?: Never true Within the past 12 months, did you worry whether your food would run out before you got money to buy more?: Never true Do you have trouble paying for medicines?: No Do you have trouble getting transportation to medical appointments?: No Do you have trouble paying your heating and electricity bill?: No Do you have trouble taking care of your child, family member or friend?: No Do you have trouble with day-to-day activities such as bathing, preparing meals, shopping, managing finances, etc.?: No Are you currently unemployed and looking for a job?: No Are you interested in more education?: I choose not to answer this question Please select the resources that you would like help with: None Currently or been in a relationship where the following occur: No concerns reported THRIVE Score: 0 AUDIT C Alcohol Use Questionnaire (AUDIT-C) 1. How often do you have a drink containing alcohol?: Monthly or less Total Score: 1 ASHLEY-7 AMB Questionnaire ASHLEY-7 Date ASHLEY - 7 assessed: 01/23/25 Feeling nervous, anxious, or on edge: 0 = Not at all Not being able to stop or control worryin = Not at all Worrying too much about different things: 1 = Several days Trouble relaxin = Not at all Being so restless that it is hard to sit still: 0 = Not at all Becoming easily annoyed or irritable: 1 = Several days Feeling afraid as if something awful might happen: 0 = Not at all Total ASHLEY-7 score (0-4 normal; 5-9 mild; 10-14 moderate; 15-21 severe): 2 Source: Developed by Drs. Twin Sierra, Sandra العراقي, John Najera and colleagues, with an educational elana from [employer]. Physical exam (Primary Care) Vital Signs: Last Vital Signs Temp 97.5 F 08/19/25 15:31 Pulse 87 08/19/25 15:31 BP 120/66 08/19/25 15:31 Pulse Ox 97 08/19/25 15:31 Oxygen Delivery Method Room Air 08/19/25 15:31 BMI result Body Mass Index 22.3 Tobacco/Smoking Status: Tobacco use Status Tobacco use date assessed 08/19/25 08/19/25 15:38 Patient Tobacco Use Status Former Tobacco user 08/19/25 15:38 Tobacco use type Cigarette 08/19/25 15:38 e-Cigarette/Vaping Use Never Used 08/19/25 15:38 PHQ-9: PHQ-9 Score PHQ-9: Total score 0 08/19/25 15:48 Depression Screening Interpretation: Negative Thrive Assessment: Date of Thrive Assessment Date Thrive assessed 08/12/25 08/19/25 15:38 Currently or been in a relationship where the following occur: No concerns reported Const General: alert; No acute distress Eyes Conjunctivae: conjunctivae normal Resp Auscultation: clear to auscultation bilaterally Cardio Rate: regular rate Rhythm: regular rhythm GI Inspection: Yes normal to inspection Extrem General: Yes normal to inspection and No edema Coding Level of Care Code Est Pt Level 4 (54018) Complex EM visit Add On G2211 Diagnoses Essential hypertension I10 Hypertension type: essential hypertension Hypertriglyceridemia E78.1 Impaired glucose tolerance R73.02 Generalized anxiety disorder F41.1 Gastroesophageal reflux disease without esophagitis K21.9 Esophagitis presence: without esophagitis Degeneration of intervertebral disc of lumbar region with discogenic back pain M51.360 Disc-related pain type: discogenic back pain only Osteopenia M85.80 Assessment & Plan Assessment & Plan (1) Hypertension: Code(s): I10 - Essential (primary) hypertension Category: Medical Qualifiers: Hypertension type: essential hypertension Qualified Code(s): I10 - Essential (primary) hypertension Plan: Continue with blood pressure medication. Decrease salt intake and exercise patient on lisinopril 5 mg once a day (2) Hypertriglyceridemia: Code(s): E78.1 - Pure hyperglyceridemia Category: Medical Plan: Avoid fried foods, chicken skin, eggs, butter margarine, pastries and meat. Be it pork or beef they have a lot of cholesterol LDL goal of less than 130 and triglyceride of less than 150 diet controlled (3) Impaired glucose tolerance: Code(s): R73.02 - Impaired glucose tolerance (oral) Category: Medical Plan: Decrease the amount of carbohydrate intake, pasta, bread, rice and potatoes are all sugar and that is aside from all the sweet stuff, remember that fruits are good but they are Sweet also. (4) Generalized anxiety disorder: Comment: [facility] Counseling Code(s): F41.1 - Generalized anxiety disorder Category: Medical Plan: Continue with counseling and therapy patient is on lorazepam as needed fluoxetine 40 mg once a day Wellbutrin 150 mg once a day (5) GERD (gastroesophageal reflux disease): Code(s): K21.9 - Gastro-esophageal reflux disease without esophagitis Category: Medical Qualifiers: Esophagitis presence: without esophagitis Qualified Code(s): K21.9 - Gastro-esophageal reflux disease without esophagitis Plan: Avoid the foods that causes that usually spicy foods, tomato products, juices, coffee, soda and foods that your sensitive to. After eating do not lie down, allow 3-4 hours before in lie down. And keep the head of bed above 30 degrees to avoid the acid from going up. (6) Degenerative disc disease, lumbar: Code(s): M51.36 - Other intervertebral disc degeneration, lumbar region Category: Medical Qualifiers: Disc-related pain type: discogenic back pain only Qualified Code(s): M51.360 - Other intervertebral disc degeneration, lumbar region with discogenic back pain only Plan: Narcotic pain meds: Is being prescribed with the understanding that these medications are potentially addictive and should be used only when absolutely necessary and must always be secured. Any remaining pills should be safely disposed off appropriately. Patient is advised that narcotics can impaired judgment and one should not drive or operate heavy machinery while taking these medications. Never share these medications with anybody and do not leave them unattended. They will not be replaced under any circumstances. (7) Osteopenia: Code(s): M85.80 - Other specified disorders of bone density and structure, unspecified site Category: Medical Plan History of Present Illness The patient is a 64-year-old female presenting for a follow-up visit. The patient has a history of lumbar degenerative disc disease, managed with narcotic pain medication. She also has gastroesophageal reflux disease (GERD), hypercholesterolemia, hypertension, impaired glucose tolerance, and generalized anxiety disorder. Her last mammogram was in September 2024, and she is due for another in September 2025. Her colonoscopy with Cologuard was negative in June 2023. Recent blood work from July 2025 showed normal blood count, electrolytes, renal function, and liver function. Her blood sugar was 105 mg/dL with a hemoglobin A1c of 5.8%, indicating impaired glucose tolerance. Cholesterol levels were within target, with LDL at 97 mg/dL and triglycerides at 125 mg/dL. The patient has osteopenia, identified in a previous bone density scan, and is advised to have a follow-up scan. She is on multiple medications, including lisinopril, fluoxetine, lorazepam, and omeprazole, among others. Health Maintenance - Mammogram due in September 2025 - Colonoscopy with negative Cologuard June 2023 - Bone density scan recommended due to osteopenia - Flu and COVID vaccines recommended Social History - Exercise: Patient reports walking regularly - Diet: Reports recent increased candy consumption Review of Systems - Musculoskeletal: Reports no swelling - Gastrointestinal: Denies bowel movement issues - Genitourinary: Denies urinary issues - Ophthalmologic: Reports morning eye discharge, possibly related to allergies Physical Exam - Respiratory: Normal breath sounds, no wheezing or crackles noted - Cardiovascular: Regular rate and rhythm, no murmurs or gallops Results - Labs: Normal blood count, electrolytes, renal function, and liver function - Blood Sugar: 105 mg/dL, Hemoglobin A1c: 5.8% - Lipid Panel: LDL 97 mg/dL, Triglycerides 125 mg/dL - Thyroid: Normal function Plan Patient was informed and verbally consented to the use of an ambient scribe for clinic note documentation during this visit. 1. Lumbar Degenerative Disc Disease The patient is currently on narcotic pain medication for lumbar degenerative disc disease. Continued management with current medication regimen is planned. 2. Gastroesophageal Reflux Disease (Gerd) The patient is on omeprazole for management of GERD symptoms. 3. Hypercholesterolemia The patient's LDL cholesterol is at 97 mg/dL, which is within the target range. Dietary management is emphasized to maintain cholesterol levels. 4. Hypertension The patient is on lisinopril 5 mg once daily for hypertension management. 5. Impaired Glucose Tolerance The patient's blood sugar is 105 mg/dL with a hemoglobin A1c of 5.8%, indicating impaired glucose tolerance. Dietary counseling is advised to prevent progression to diabetes. 6. Generalized Anxiety Disorder The patient is on fluoxetine 40 mg daily and lorazepam as needed for anxiety management. Continued therapy and counseling are recommended. 7. Osteopenia The patient has osteopenia and is advised to have a follow-up bone density scan. Discussion Notes During the visit, we discussed the management of the patient's chronic conditions, including lumbar degenerative disc disease, GERD, hypercholesterolemia, hypertension, impaired glucose tolerance, and generalized anxiety disorder. We reviewed the importance of maintaining a healthy diet and regular exercise to manage blood sugar and cholesterol levels. The patient was advised to continue current medications and follow up with recommended screenings, including a mammogram and bone density scan. Patient Instructions - Continue current medications as prescribed. - Schedule and attend mammogram and bone density scan appointments. - Maintain a balanced diet and regular exercise routine. - Monitor blood sugar levels and report any significant changes. - Follow up in six months for routine check-up and blood sugar monitoring. Orders: Orders XR DEXA axial skeleton Today M81.0 - Age-related osteoporosis without current pathological fracture, M85.80 - Other specified disorders of bone density and structure, unspecified site Medications: Refilled oxycodone-acetaminophen 5-325 mg 1 tab PO DAILY PRN 30 tabs 0RF pain R73.02 - Impaired glucose tolerance (oral)
[2025-08-19 15:31] VITALS: BP 120/66; PULSE 87; TEMP 36.4; O2SAT 97; BMI 22.3
--- OUTSIDE RECORDS SUMMARY | 2025-08-19 18:14 | XMS_ITS | Patient Health Record ---
Author Organization [facility] Address [address] [place] [id number] Care Team Providers Care Cognos Consultant Name Role Phone Maximo Oro MD Primary Care Provider Twin Esteban [phone] Reason For Referral No Information Medications Medication SIG (Take, Route, Frequency, Duration) Notes Start Date End Date Status LORazepam 1 MG 1 tablet at bedtime as needed Orally TID Active Sertraline HCl 50 MG 3 tablet Orally Onc e a day Active Lisinopril 5 MG 1 tablet Orally Once a day for 30 day(s) Active Multi Vitamin/Minerals - as directed Ora lly once a day Active DOK 100 MG 1 capsule as needed Orally twice a day Active Omeprazole 20 MG 1 capsule 30 minutes before morning meal Orally Once a day for 30 day(s) Active Percocet 5-325 MG 1 tablet as needed Orally prn Active rOPINIRole HCl 1 MG 1 tablet 1 to 3 hour s before bedtime Orally Once a day for 30 day(s) Active Cyclobenzaprine HCl 10 MG 1 tablet Orall y Three times a day Active Calcium 500+D High Potency 500-400 MG-UNIT 1 tablet Orally Twice a day Active PreserVision AREDS 2 - as directed Orall y twice a day Active Pwxkcc-Dpovihssc-OFU Complex - as directed Orally once a day Active Immunizations Vaccine Route Administration Date Status Comme nts Influenza Unknown 08/22/2019 Administered Social History Tobacco Use: Social History Observation Description Date Details (start date - stop date) Former Smoker NA - NA Tobacco Use/Smoking Question Answer Notes Patient is a former smoker How long has it been since you last smoked? > 10 years Alcohol Screen Question Answer Notes Did you have a drink contain ing alcohol in the past year? Yes How often did you have a dri nk containing alcohol in the past year? Monthly or less (1 point) How many drinks did you have on a typical day when you were drinking in the past year? 1 or 2 drinks (0 point) How often did you have 6 or more drinks on one occasion in the past year? Never (0 point) Points 1 Interpretation Negative Section Notes: Nonsmoker; no sig alcohol Problems Problem Type SNOMED Code ICD Code Onset Dates Problem Status W/U Status Risk Notes Problem 563920050 Encounter for screening for malignant neoplasm of colon (Z12.11) Active confirmed Problem [id number] Gastroesophageal reflux disease, esophagitis presence not specified (K21.9) Active confirmed Plan Of Treatment Future Test Test Name Order Date UPPER GI ENDOSCOPY 01/01/2020 COLONOSCOPY 01/01/2020 Insurance Providers Payer Name Payer Address Payer Phone Subscriber Number Group Number Insured Name Patient Relationship to Insured Coverage Start Date Coverage End Date [facility] [address] [address] [place], [place] [id number] ANNALISE PENNINGTON Self - patient is the insured Medical (General) History Medical History History ICD Code Denies [place],DM,CVA,Lung disease,renal dise ase Hypertension Negative screening colonoscopy in 02/2009 Episodes of Hypoglycemia Restless leg syndrome GERD Surgical History Surgery Date(Month/Year) Gastric bypass-[facility] with Dr. Nam--michael ost 150# 2012 Abdominoplasty 2016 Emergency vaginal tear/hernia repair via a laparotomy 05/2019
== END 2025-08-19 16:02 | disposition home or self-care (01) ==
LOC: HO.HMCH 15:19
PROVIDERS: PCP Internal Medicine; Visit Provider Internal Medicine
DX: I10 Essential (primary) hypertension (principal); E78.1 Pure hyperglyceridemia; R73.02 Impaired glucose tolerance (oral); F41.1 Generalized anxiety disorder; K21.9 Gastro-esophageal reflux disease without esophagitis; M51.360 Other intervertebral disc degeneration, lumbar region with discogenic back pain only; M85.80 Other specified disorders of bone density and structure, unspecified site

== ENCOUNTER → 2025-08-19 15:18 | Outpatient (BNVA) | payer MEDICARE, MEDICAID, SELFPAY | PROVIDERS: PCP Internal Medicine; Visit Provider Internal Medicine | DX: I10 Essential (primary) hypertension (principal); E78.1 Pure hyperglyceridemia; R73.02 Impaired glucose tolerance (oral); F41.1 Generalized anxiety disorder; K21.9 Gastro-esophageal reflux disease without esophagitis; M51.360 Other intervertebral disc degeneration, lumbar region with discogenic back pain only; E78.00 Pure hypercholesterolemia, unspecified | CPT/HCPCS: 96127; 99212 ==

== ENCOUNTER 2025-10-18 09:14 | Outpatient (REF) | payer MEDICARE, MEDICAID, SELFPAY ==
--- NOTE | ~2025-10-18 | MM_ITS ---
EXAMINATION: MM SCREENING DIGITAL BREAST TOMOSYNTHESIS, BILATERAL CLINICAL INFORMATION: Screening. Asymptomatic. COMPARISON: Comparison made to multiple prior, most recent October 12, 2024, and most remote February 20, 2013. TECHNIQUE: Digital breast tomosynthesis is performed in mediolateral oblique and craniocaudal views along with computer-aided detection (CAD). Synthesized 2D images are generated from the tomosynthesis. FINDINGS: BREAST COMPOSITION: There are scattered areas of fibroglandular density. BILATERAL BREASTS: No significant masses, suspicious calcifications or other abnormalities are seen in either breast. MM/MM tomosynthesis screening BI IMPRESSION: BILATERAL BREASTS: Negative, no mammographic evidence of malignancy. Normal interval follow-up is recommended in 12 months. ASSESSMENT: BI-RADS: Category 1: Negative RECOMMENDATION: Routine annual mammography screening. FOLLOW-UP: 1 year F/U This examination should not preclude the clinical evaluation of a suspicious palpable abnormality. This patient's information was entered into a reminder system with a target due date for their next mammogram. Electronically signed by: Maykel Gunn MD 10/20/2025 07:56 PM [facility]
--- OUTSIDE RECORDS SUMMARY | 2025-10-18 09:17 | XMS_ITS | Patient Health Record ---
Author Organization [facility] Address [address] [place] [address] Care Team Providers Care Clerk Typist Name Role Phone Maximo Oro MD Primary Care Provider Twin Esteban [phone] Reason For Referral No Information Medications Medication SIG (Take, Route, Frequency, Duration) Notes Start Date End Date Status LORazepam 1 MG Tablet 1 tablet at bedtim e as needed Orally TID Active Sertraline HCl 50 MG Tablet 3 tablet Ora lly Once a day Active Lisinopril 5 MG Tablet 1 tablet Orally O nce a day; Duration: 30 day(s) Active Multi Vitamin/Minerals - Tablet as directed Orally once a day Active DOK 100 MG Capsule 1 capsule as needed Orally twice a day Active Omeprazole 20 MG Capsule Delayed Release 1 capsule 30 minutes before morning meal Orally Once a day; Duration: 30 day(s) Active Percocet 5-325 MG Tablet 1 tablet as nee ded Orally prn Active rOPINIRole HCl 1 MG Tablet 1 tablet 1 to 3 hours before bedtime Orally Once a day; Duration: 30 day(s) Active Cyclobenzaprine HCl 10 MG Tablet 1 tablet Orally Three times a day Active Calcium 500+D High Potency 500-400 MG-UNIT Tablet 1 tablet Orally Twice a day Active PreserVision AREDS 2 - Capsule as directed Orally twice a day Active Twuiuh-Ixvnqlnma-EUW Complex - Tablet as directed Orally once a day Active Immunizations Vaccine Route Administration Date Status Comme nts Influenza Unknown 08/22/2019 Administered Social History Tobacco Use: Social History Observation Description Date Details (start date - stop date) Former Smoker NA - NA Social History Drugs/Alcohol: Social Info Question Answer Notes Alcohol Screen Did you have a drink containing alcohol in the past year? Yes How often did you have a drink containing alcohol in the past year? Monthly or less (1 point) How many drinks did you have on a typical day when you were drinking in the past year? 1 or 2 drinks (0 point) How often did you have 6 or more drinks on one occasion in the past year? Never (0 point) Points 1 Interpretation Negative Tobacco Use: Social Info Question Answer Notes Tobacco Use/Smoking Patient is a former smoker How long has it been since you last smoked? 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[employer] [place] Section Notes: Nonsmoker; no sig alcohol Problems Problem Type SNOMED Code ICD Code Onset Dates Problem Status W/U Status Risk Notes Problem Screening for malignant neoplasm of colon ([id number]) Encounter for screening for malignant neoplasm of colon (Z12.11) Active confirmed Problem Gastroesophageal reflux disease (470683396) Gastroesophageal reflux disease, esophagitis presence not specified (K21.9) Active confirmed Plan Of Treatment Future Test Test Name Order Date UPPER GI ENDOSCOPY 01/01/2020 COLONOSCOPY 01/01/2020 Insurance Providers Payer Name Payer Address Payer Phone Subscriber Number Group Number Insured Name Patient Relationship to Insured Coverage Start Date Coverage End Date [facility] [address] [address] [place], [place] [id number] ANNALISE PENNINGTON Self - patient is the insured Medical (General) History Medical History History ICD Code Denies [place],DM,CVA,Lung disease,renal dise ase Hypertension Negative screening colonoscopy in 02/2009 Episodes of Hypoglycemia Restless leg syndrome GERD Surgical History Surgery Date(Month/Year) Gastric bypass-[facility] with Dr. Nam--l ost 150# 2013 Abdominoplasty 2017 Emergency vaginal tear/hernia repair via a laparotomy 05/2019
--- OUTSIDE RECORDS SUMMARY | 2025-10-18 09:17 | XMS_ITS | Data Portability ---
Author Organization [place] 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 Imaging has shown asymmetry of the right tonsil compared to the left. 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 The adenopathy has basically resolved but the CT scan of the neck continues to show asymmetry of the tonsil. Examination shows just some mild lymphoid hyperplasia right greater than left. After informed consent, biopsy of the asymmetry was performed. This was well-tolerated. Patient understands the potential risk of missing a diagnosis. Presently she is asymptomatic so hopefully this will be a pharmaceutical representative sample. [email or web address] Not available 05/13/2024 14:02:12 Plan of Treatment Reminders Order Date Submit Date Provider Last Modified By Organization Details Last Modified Time Details Appointments None record ed. Lab unlist ed lab - H+E histol ogy w/stai ns 2023 024 filemon [facility] (Centralized Electronic Ordering - All Locations), Patient Can Go To The Location Of Their Choice, [id number] 17:17:57 Referral None record ed. Procedures None record ed. Surgeries None record ed. Imaging None record ed. Medication Orders None record ed. Patient TargetsNo targets recorded. Patient InstructionsNo instructions recorded. Reason for Referral None Reported. Results Created Date Observation Date Name Description Value Unit Range Abnormal Flag Note LastModifiedBy Organization Detail LastModifiedTime Result Notes None recorded. 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 - [facility] [place] 4 13:50:41 Localized enlarged lymph nodes 265252965 Active 024 LUISA LAGUERRE MD [address] [place] [address], [phone], [facility] - [facility] [place] 4 13:50:47 Problem Notes None recorded. Procedures Surgical History Date Name Laterality Status Provider Name and Address Organization Details Recorded Time 05/13/20 24 Biopsy Oropharynx completed LUISA PURDY MD [address], [phone], [facility] - [facility] [place] 05/13/2024 13:50:19 operation on neck completed [facility] - [facility] [place] 05/13/2024 13:14:46 Gastric bypass for obesity completed [facility] - [facility] [place] 05/13/2024 13:14:56 removal of cystostomy tube completed [facility] - [facility] [place] 05/13/2024 13:36:30 excision of lipoma completed [facility] - [facility] [place] 05/13/2024 13:36:55 panniculectomy completed [facility] - [facility] 05/13/2024 13:37:15 Imaging Results None recorded. Procedure Notes None recorded. Medical Equipment None Reported. Medications Name Sig Start Date Stop Date Status Note LastModified by Organization Details LastModified Time fluoxetine 10 mg capsule Take 1 capsule every day by oral route. active Not Available Not Available No t Available calcium carbonate active Not Available Not Available No t Available omeprazole active Not Available Not Av ailable Not Available lisinopril active Not Available Not Av ailable Not Available Prozac active Not Available Not Availa ble Not Available Percocet active Not Available Not Avai lable Not Available cyclobenzaprine active Not Available N ot Available Not Available bupropion HBr active Not Available Not Available Not Available dextroamphetami ne sulfate 20 mg tablet Take 1 tablet every day by oral route. active Not Available Not Available No t Available fluticasone prop.50 mcg spray,suspen-so d.chloride 0.9% nasal spray kit Take by nasal route. active Not Available Not Available No t Available Vitals Date Recorded Body height Body mass index (BMI) Body weight Provider Name and Address Organization Details Last Updated DateTime 05/13/2024 170.18 cm 22.2 kg/m2 82107.12 g Graeme Cárdenas MA [facility] 05/13/2024 13:20:29 Social History Question Answer Notes LastModified by Organizat ion Details LastModified Time Tobacco Smoking Status Former Smoker Graeme lynn MA [facility] 05/13/2024 13:38:16 What Is Your Current Pack Years? 10packyears [email or web address] Information not available 05/13/2024 How Much Tobacco Do You Smoke? 0.5 PPD [email or web address] Information not available 05/13/2024 Sex: Unknown Functional Status Question Answer Note LastModified by Organizat ion Details LastModified Time Do you or have you ever used any other forms of tobacco or nicotine? Yes Information not available 05/13/2024 Do you or have you ever used e-cigarettes or vape? Never used electronic cigarettes [email or web address] Information not available 05/13/2024 Mental Status None recorded. Family History Nothing Reported. Medical History Condition Response Arthritis Y Anxiety Y GERD/Reflux Y Hyperlipidemia Y Migraines Y Hypertension Y Gynecological HistoryNo gynecological history recorded. Obstetrics History GPAL:G 0 P 0 0 0 0 Past Encounters Encounter ID Performer Location Encounter Start Date Encounter Closed Date Diagnosis/Indication Diagnosis SNOMED-CT Code Diagnosis ICD10 Code Diagnosis IMO Codes Diagnosis Note [id number] LUISA WATTS MD [facility] [address] [phone] 05/13/2024 13:10:21 05/13/2024 14:04:59 Neoplasm of digestive system 474417960 D49.0 Localized enlarged lymph nodes 807185903 R59.0 Health Concerns Section Related Observation LastModified by Organization Detai ls LastModified Time None Recorded Concern Status LastModified by Organization Details LastModified Time None Recorded Advance Directives Directive None Recorded Payers Insurance Date Sequence Insurance Name Policy Number Policy Kelly Covered Member ID Kelly Member ID Guarantor Name 05/13/2024 1 [place]IC[place] [employer] Tonya Vasquez [id number] Tonya Sinclair Christina 05/13/2024 2 [place] [facility] Tonya Vasquez [id number] Tonya Sinclair Christina Notes Date Note Type Note Provider Name and Address Organization Details Recorded Time 05/13/2024 text/html ROS as noted in the HPI Patient reports prior right cervical lymph node biopsy in January after CAT scan showed multiple cervical nodes with low-attenuation center suspicious for malignancy. Biopsy subsequently showing granulomatous adenitis. At that time there was some asymmetry of her right tonsil. She subsequently had a follow-up CT scan at [facility] on April 05. She had persistent asymmetry of the right tonsil but significant improvement in the cervical adenopathy. She has been a non-smoker for 24 years. Rare alcohol intake. No dysphagia, odynophagia, otalgia or change in voice. No chest pain shortness of breath bowel bladder problems. No fever chills night sweats. The adenopathy has improved LUISA PURYD MD [address] [place] [address], [place], [phone], [facility] - [facility] 05/13/2024 14:04:00 OBGyn Episode No OBEpisode recorded.
== END 2025-10-18 09:15 | disposition home or self-care (01) ==
LOC: HO.MAMMO 09:14
PROVIDERS: PCP Internal Medicine; Visit Provider Internal Medicine
DX: Z12.31 Encounter for screening mammogram for malignant neoplasm of breast (principal)
CPT/HCPCS: 77063; 77067

== ENCOUNTER → 2025-10-18 09:15 | Outpatient (BNV) | payer MEDICARE, MEDICAID, SELFPAY | PROVIDERS: PCP Internal Medicine; Visit Provider Radiology Body Imaging | DX: Z12.31 Encounter for screening mammogram for malignant neoplasm of breast (principal) | CPT/HCPCS: 77063; 77067 ==

== ENCOUNTER 2025-11-06 09:02 | Outpatient (REF) | payer MEDICARE, MEDICAID, SELFPAY ==
--- NOTE | ~2025-11-06 | MM_ITS ---
EXAMINATION: DXA BONE DENSITY AXIAL HISTORY: M81.0 - Age-related osteoporosis without current pathological fracture TECHNIQUE: Pixable Dual energy absorptiometry (DEXA) of the lumbar spine, total left hip, and femoral neck was performed. COMPARISON: Comparison is made with the prior examination dated 11/14/2019. FINDINGS: The bone mineral density of the lumbar spine is 1.285 g/cm2, corresponding to a T-score of 0.9, and a Z-score of 2.6. This is indicative of normal bone mineral density. This represents a BMD change of -0.5% compared to the prior exam. This is not statistically significant. The bone mineral density of the left total hip is 0.740 g/cm2, corresponding to a T-score of -2.1, and a Z-score of -0.8. This is indicative of osteopenia. This represents a BMD change of -11.0% compared to the prior exam. This is statistically significant. The bone mineral density of the left femoral neck is 0.700 g/cm2, corresponding to a T-score of -2.4, and a Z-score of -0.8. This is indicative of osteopenia. This represents a BMD change of -9.1% compared to the prior exam. FRACTURE RISK: The FRAX index suggests a ten year probability of major osteoporotic fracture of 33.1%, and of hip fracture 6.5%. MM/XR DEXA axial skeleton IMPRESSION: Based on bone mineral density, and according to World Health Organization (WHO) criteria, the diagnosis is consistent with osteopenia. Statistically, 68% of repeat scans fall within 1 SD (+/- 0.010 g/cm2 for AP spine L1-L4) and 1 SD (+/- 0.012 g/cm2 for femur total) FRAX is a trademark of the [employer] [place] [facility] Metabolic Bone Disease, a World Health Organization (WHO) Collaborating Center. Electronically signed by: Twin Arechiga MD 11/06/2025 09:55 AM [facility]
== END 2025-11-06 09:03 | disposition home or self-care (01) ==
LOC: HO.MAMMO 09:02
PROVIDERS: PCP Internal Medicine; Visit Provider Internal Medicine
DX: M81.0 Age-related osteoporosis without current pathological fracture (principal); M85.89 Other specified disorders of bone density and structure, multiple sites
CPT/HCPCS: 77080

== ENCOUNTER → 2025-11-06 09:15 | Outpatient (BNV) | payer MEDICARE, MEDICAID, SELFPAY | PROVIDERS: PCP Internal Medicine; Visit Provider Radiology Diagnostic Radiology | DX: E28.39 Other primary ovarian failure (principal) | CPT/HCPCS: 77080 ==